=== PATIENT | male | born 1990 | race Two or more races ===

== ENCOUNTER 2019-03-23 14:00 | Inpatient (IN) | payer OTHER ==
[2019-03-23] VITALS (38 sets, daily range): BP systolic 82–180; BP diastolic 31–127
[~2019-03-23] VITALS: Ht 180.3 cm; Wt 90.7 kg
--- NOTE | 2019-03-23 14:02 | Emergency Room Report ---
History of Present Illness General Chief Complaint: Shortness of breath AMS Source: Patient, EMS Present Illness HPI 28-year-old male presents with acute respiratory failure patient required 2 mg of Narcan to wake him up, patient was found with pinpoint pupils, after given Narcan he started throwing up, having very agitated, patient is giving a very limited history secondary to just being woken up from his overdose. Patient presents for evaluation, just prior to arrival, aggravating factors drug use, alleviating factors Narcan, severity was severe unknown length of time Allergies: Coded Allergies: No Known Allergies (Unverified , 03/23/19) Patient History Limited by: medical condition - Altered from heroin overdose Past Medical History: see triage record Social History: Reports: smoking, drug use - Opioids Reviewed Nursing Documentation: PMH: Agreed; PSxH: Agreed Review of Systems All Other Systems: limited - Just awoken by Narcan Physical Exam Sp02 EP Interpretation: reviewed, normal General Appearance: alert, moderate distress Head: normocephalic, atraumatic Eyes: bilateral eye PERRL, bilateral eye EOMI ENT: uvula midline, dry mucus membranes Neck: supple, thyroid normal, supple/symm/no masses Respiratory: respiratory distress, accessory muscle use, crackles Cardiovascular #1: normal peripheral pulses, no edema, no gallop, no murmur, tachycardia Gastrointestinal: non tender, soft, no guarding, no rebound Musculoskeletal: normal inspection Neurologic: alert, oriented x3 Psychiatric: anxious Skin: no rash, warm/dry Procedures Critical Care Time Critical Care Time Given the critical condition in which the patient arrived, the patient was immediately assessed by myself and the nurse, and cardiac monitoring initiated due to the potential for rapid decompensation of the patient's clinical condition. During the course of the patient's stay, I spent a considerable amount of time at the bedside performing serial re-evaluations of the patient's hemodynamic and clinical status because of the recognized potential threat to life or limb in this condition. I then had a chance to review not only all of the available current laboratory and radiographic studies obtained today, but I also reviewed old records available to me at the time. 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 Sequential vital signs were obtained. Critical Care time of 90 minutes was performed exclusive of billable procedures. Intubation Intubation : Consent: Emergent Time of Intubation: 14:40 Intubation Method: orotracheal Tube Size (cm): 7.5 Medications: Etomidate, Rocuronium Breath Sounds after Intubation: equal Intubation Complications: O2 saturation decreased Post Intubation Xray: Yes Progress/Xray Impression: s/p intubation well seated Attempts: One Patient Tolerated: Well Complications: Other - patient already desatting in 20s Progress Patient required peep valve 20 to bag through pulmonary edema Medical Decision Making Diagnostic Impression: Primary Impression: Overdose Qualified Codes: T50.901A - Poisoning by unspecified drugs, medicaments and biological substances, accidental (unintentional), initial encounter Additional Impressions: Acute non-cardiogenic pulmonary edema Respiratory failure with hypoxia Qualified Codes: J96.01 - Acute respiratory failure with hypoxia ER Course 28-year-old male presents with acute hypoxic respiratory distress concerning for possible noncardiogenic pulmonary edema secondary to drug use patient is altered, patient is hypoxic down to 22, with a good waveform, patient was emergently intubated. Patient was spilling out pink frothy sputum, patient was emergently intubated Patient required a Peep valve in order to maintain his saturation, the vent was titrated in accordance to ARDS net protocol Patient vent titration Patient given antibiotics Patient admitted to Dr. Lima 4:44pm Patient : DEEPAK TRAVIS Referring Physician: Theodore Parker MD ID Number: [id number] Service Date: 03/23/19 : 1990 Report Date: 03/23/19 Gender: M Accession No.: [id number] Location: [facility] Procedure: XRAY Chest 1v Indication: Post intubation Technique: One view of the chest Comparison: One half hour earlier Findings: Interim placement of an endotracheal tube, endotracheal tube tip in good position approximately 5 cm above the stacie. Interim nasogastric intubation, tube tip projected at the level gastric fundus, in good position. Again demonstrated is extensive diffuse bilateral right greater than left interstitial and airspace disease. Impression: Satisfactory endotracheal and nasogastric intubation Persistent extensive bilateral interstitial and airspace infiltrates versus edema Dictated By: Thony Dumont MD Electronically Signed By: Thony Dumont MD Signed Date/Time 03/23/19 0679 CC: Theodore Parker MD Laboratory Tests Test 03/23/19 14:10 03/23/19 14:20 03/23/19 14:59 03/23/19 15:30 Lactic Acid Level 8.90 mmol/L (0.4-2.0) H White Blood Count 18.0 K/UL (4.8-10.8) H Red Blood Count 6.33 M/UL (4.70-6.10) H Hemoglobin 18.0 G/DL (14.2-18.0) Hematocrit 54.9 % (42.0-52.0) H Mean Corpuscular Volume 87 FL (80-99) Mean Corpuscular Hemoglobin 28.4 PG (27.0-31.0) Mean Corpuscular Hemoglobin Concent 32.7 G/DL (32.0-36.0) Red Cell Distribution Width 12.6 % (11.6-14.8) Platelet Count 283 K/UL (150-450) Mean Platelet Volume 6.0 FL (6.5-10.1) L Neutrophils (%) (Auto) % (45.0-75.0) Lymphocytes (%) (Auto) % (20.0-45.0) Monocytes (%) (Auto) % (1.0-10.0) Eosinophils (%) (Auto) % (0.0-3.0) Basophils (%) (Auto) % (0.0-2.0) Differential Total Cells Counted 100 Neutrophils % (Manual) 81 % (45-75) H Lymphocytes % (Manual) 18 % (20-45) L Monocytes % (Manual) 1 % (1-10) Eosinophils % (Manual) 0 % (0-3) Basophils % (Manual) 0 % (0-2) Band Neutrophils 0 % (0-8) Platelet Estimate Adequate Platelet Morphology Normal Prothrombin Time 10.3 SEC (9.30-11.50) Prothrombin Time INR 1.0 (0.9-1.1) PTT 23 SEC (23-33) Sodium Level 137 MMOL/L (136-145) Potassium Level 3.2 MMOL/L (3.5-5.1) L Chloride Level 100 MMOL/L (98-107) Carbon Dioxide Level 26 MMOL/L (21-32) Anion Gap 11 mmol/L (5-15) Blood Urea Nitrogen 13 mg/dL (7-18) Creatinine 1.5 MG/DL (0.55-1.30) H Estimate Glomerular Filtration Rate 56.6 mL/min (>60) Glucose Level 345 MG/DL (74-106) H Calcium Level 8.3 MG/DL (8.5-10.1) L Phosphorus Level 3.6 MG/DL (2.5-4.9) Magnesium Level 2.2 MG/DL (1.8-2.4) Total Bilirubin 0.2 MG/DL (0.2-1.0) Aspartate Amino Transferase (AST) 66 U/L (15-37) H Alanine Aminotransferase (ALT) 54 U/L (12-78) Alkaline Phosphatase 87 U/L (46-116) Total Creatine Kinase 543 U/L (26-308) H Troponin I 0.099 ng/mL (0.000-0.056) Pro-B-Type Natriuretic Peptide 63 pg/mL (0-125) Total Protein 7.2 G/DL (6.4-8.2) Albumin 3.6 G/DL (3.4-5.0) Globulin 3.6 g/dL Albumin/Globulin Ratio 1.0 (1.0-2.7) Lipase 115 U/L (73-393) Arterial Blood pH 6.937 (7.350-7.450) Arterial Blood Partial Pressure CO2 131.8 mmHg (35.0-45.0) *H Arterial Blood Partial Pressure O2 156.7 mmHg (75.0-100.0) H Arterial Blood HCO3 27.5 mmol/L (22.0-26.0) H Arterial Blood Oxygen Saturation 97.4 % (95-100) Arterial Blood Base Excess -10.1 (-2-2) *L [place] Test Positive Urine Color Pale yellow Urine Appearance Slightly cloudy Urine pH 5 (4.5-8.0) Urine Specific [place] 1.020 (1.005-1.035) Urine Protein 1+ (NEGATIVE) H Urine Glucose (UA) 4+ (NEGATIVE) H Urine Ketones Negative (NEGATIVE) Urine Blood 2+ (NEGATIVE) H Urine Nitrite Negative (NEGATIVE) Urine Bilirubin Negative (NEGATIVE) Urine Urobilinogen Normal MG/DL (0.0-1.0) Urine Leukocyte Esterase Negative (NEGATIVE) Urine RBC 5-10 /HPF (0 - 0) H Urine WBC 0-2 /HPF (0 - 0) Urine Squamous Epithelial Cells None /LPF (NONE/OCC) Urine Bacteria Occasional /HPF (NONE) EKG Diagnostic Results EKG Time: 14:12 EP Interpretation: Sinus tachycardia, rate 163, QTc 510, no acute ST elevations , normal axis Rhythm Strip Diag. Results Rhythm Strip Time: 15:43 EP Interpretation: yes Rate: 143 Rhythm: other - Sinus tachycardia Chest X-Ray Diagnostic Results Chest X-Ray Diagnostic Results : Chest X-Ray Ordered: Yes # of Views/Limited/Complete: 1 View Indication: Shortness of Breath EP Interpretation: Yes Interpretation: other - diffuse pulm edema Impression: Other - diffuse pulm edema Electronically Signed by: Theodore Parker MD Disposition: ADMITTED INPATIENT Condition: Critical Scripts Unable to Obtain Active Prescriptions or Reported Meds Theodore Parker MD Mar 23, 2019 14:02
[2019-03-23 14:47] LABS: HEMATOCRIT 54.9 % (42.0-52.0); MEAN CORPUSCULAR VOLUME 87 FL (80-99); PLATELET COUNT 283 K/UL (150-450); RED BLOOD COUNT 6.33 M/UL (4.70-6.10); RED CELL DISTRIBUTION WIDTH 12.6 % (11.6-14.8)
[2019-03-23 14:59] LABS: ANION GAP 11 mmol/L (5-15); BLOOD UREA NITROGEN 13 mg/dL (7-18); CALCIUM 8.3 MG/DL (8.5-10.1); CARBON DIOXIDE 26 MMOL/L (21-32); CHLORIDE 100 MMOL/L (98-107); CREATININE 1.5 MG/DL (0.55-1.30); POTASSIUM 3.2 MMOL/L (3.5-5.1); SODIUM 137 MMOL/L (136-145)
[2019-03-23 15:03] LABS: ALANINE AMINOTRANSFERASE 54 U/L (12-78); ALBUMIN 3.6 G/DL (3.4-5.0); ALKALINE PHOSPHATASE 87 U/L (46-116); ASPARTATE AMINO TRANSFERASE 66 U/L (15-37); BILIRUBIN,TOTAL 0.2 MG/DL (0.2-1.0)
--- NOTE | 2019-03-23 15:15 | Diagnostic Imaging Report ---
Indication: Post intubation Technique: One view of the chest Comparison: One half hour earlier Findings: Interim placement of an endotracheal tube, endotracheal tube tip in good position approximately 5 cm above the stacie. Interim nasogastric intubation, tube tip projected at the level gastric fundus, in good position. Again demonstrated is extensive diffuse bilateral right greater than left interstitial and airspace disease. Impression: Satisfactory endotracheal and nasogastric intubation Persistent extensive bilateral interstitial and airspace infiltrates versus edema
[2019-03-23 15:42] LABS: CREATINE KINASE 543 U/L (26-308); PHOSPHORUS 3.6 MG/DL (2.5-4.9)
--- NOTE | 2019-03-23 15:43 | Diagnostic Imaging Report ---
Indication: Status post nasogastric intubation Technique: Supine view of the upper abdomen Comparison: none Findings: There is a nasogastric tube in place, tip of which projects at the level gastric fundus, proximal port well below the gastroesophageal junction. Extensive pulmonary parenchymal disease is also noted. Impression: Satisfactory nasogastric intubation
[2019-03-23 16:12] LABS: APPEARANCE,URINE SLIGHTLY CLOUDY; BILIRUBIN, URINE NEGATIVE (NEGATIVE); COLOR,URINE PALE YELLOW; GLUCOSE, URINE (UA) 4+ (NEGATIVE); KETONES,URINE NEGATIVE (NEGATIVE); LEUKOCYTE ESTERASE ,URINE NEGATIVE (NEGATIVE); NITRITE,URINE NEGATIVE (NEGATIVE); PH,URINE 5 (4.5-8.0); PROTEIN,URINE 1+ (NEGATIVE); UROBILINOGEN,URINE NORMAL MG/DL (0.0-1.0)
[2019-03-23] MEDS ORDERED: Cefepime HCl 2 GM in D5W 55 ML IVPB ONE (16:15)
[2019-03-23] MEDS ORDERED: Vancomycin 1.5gm/NS Premix 275 ML IVPB SCH (16:15)
--- NOTE | 2019-03-23 16:29 | Diagnostic Imaging Report ---
Indication: Dyspnea Technique: One view of the chest Comparison: none Findings: There is diffuse bilateral interstitial and confluent and nodular airspace disease. The pleural spaces are clear. The heart size is normal. Impression: Bilateral extensive diffuse parenchymal disease, infiltrates versus edema.
[2019-03-23] MEDS ORDERED: Vancomycin 1.5 GM in NS 275 ML IVPB SCH (16:30)
[2019-03-23] MEDS: LORazepam Inj 2mg/ml 1ml IV ONE ×2 (17:32→17:40)
[2019-03-23] MEDS: Heparin 5000 units/ml inj SUBQ SCH (18:44)
[2019-03-23] MEDS: Piperacillin/Tazobactam 3.375 GM in NS 110 ML IVPB SCH (18:51)
[2019-03-23] MEDS: NS w/KCl 20mEq 1000ml 1,000 ML IV SCH (20:00)
[2019-03-23] MEDS: Nitroglycerin Patch 0.1mg/hr TDERMAL SCH (20:30)
[2019-03-23] MEDS ORDERED: Rocuronium Bromide 50mg/5ml Inj IV ONE ×2 (20:51)
[2019-03-23] MEDS ORDERED: Etomidate 40mg/20ml Inj IV ONE (20:51)
[2019-03-24] VITALS (47 sets, daily range): BP systolic 82–138; BP diastolic 45–90
--- NOTE | 2019-03-24 | History and Physical Report ---
DATE OF ADMISSION: 03/23/2019 REASON FOR ADMISSION: Respiratory failure. HISTORY OF PRESENT ILLNESS: This is a 28-year-old male. He was found with pinpoint pupils. He was given Narcan in the field and apparently became agitated and started vomiting. He apparently has a history of drug use. In the emergency room, intubation and mechanical ventilation was initiated. Opioids were confirmed in his drug screen. PAST MEDICAL HISTORY: Not obtainable. ALLERGIES: Not known. MEDICATIONS: Not known. SOCIAL HISTORY: Positive smoker, quantity not known. History of opioid use REVIEW OF SYSTEMS: Not obtainable. PHYSICAL EXAM: GENERAL: Orally intubated. Mechanically ventilated. VITAL SIGNS: Blood pressure 164/127, pulse 150, and respirations 24. Afebrile. HEENT: Pupils reactive and orally intubated. LUNGS: Bilateral rhonchi. HEART: Regular rhythm and rate. Normal S1, S2. ABDOMEN: Soft. NG-tube in place. EXTREMITIES: No edema. Perfusion of the digits is adequate. IMAGING: Chest x-ray reveals infiltrates versus edema bilaterally admitting ABG 6.93, 130, and 156. White count 18 and hemoglobin 18. Sodium 137, potassium 3.2, bicarb 26, BUN 13, and creatinine 1.5. Glucose 345. Lactic acid 8.9. CK 543. Troponin 0.099. Natriuretic peptide 63. Lipase normal. Urinalysis with only 5 to 10 red cells. Toxicology screen positive for marijuana. IMPRESSION: 1. Respiratory failure. 2. Aspiration pneumonia. 3. Possible noncardiogenic pulmonary edema. 4. Acute myocardial ischemia. 5. Possible overdose. 6. Severe respiratory acidosis. 7. Lactic acidosis. PLAN: 1. Ventilator support. 2. Intravenous fluid therapy. 3. Antimicrobials. 4. Nitrates. 5. Anti-platelet therapy. 6. DVT and stress ulcer prophylaxis. 7. Withdrawal precautions. 8. We will attempt to expand database. We will contact the family members. Frederick Velasco M.D. DR: YARI JOB#: [id number] CC:
[2019-03-24] MEDS: LORazepam Inj 2mg/ml 1ml IV PRN ×4 (00:54→20:14)
[2019-03-24] MEDS: Piperacillin/Tazobactam 3.375 GM in NS 110 ML IVPB SCH ×3 (01:43→18:09)
[2019-03-24] MEDS: NS w/KCl 20mEq 1000ml 1,000 ML IV SCH ×2 (05:00→17:08)
[2019-03-24 05:01] LABS: HEMATOCRIT 45.2 % (42.0-52.0); HEMOGLOBIN 15.7 G/DL (14.2-18.0); MEAN CORPUSCULAR VOLUME 84 FL (80-99); PLATELET COUNT 195 K/UL (150-450); RED CELL DISTRIBUTION WIDTH 12.4 % (11.6-14.8); WHITE BLOOD COUNT 15.4 K/UL (4.8-10.8)
[2019-03-24 05:18] LABS: ANION GAP 2 mmol/L (5-15); BLOOD UREA NITROGEN 13 mg/dL (7-18); CALCIUM 7.5 MG/DL (8.5-10.1); CARBON DIOXIDE 31 MMOL/L (21-32); CHLORIDE 106 MMOL/L (98-107); CREATININE 1.3 MG/DL (0.55-1.30); POTASSIUM 4.1 MMOL/L (3.5-5.1); SODIUM 139 MMOL/L (136-145)
[2019-03-24 05:22] LABS: ALANINE AMINOTRANSFERASE 38 U/L (12-78); ALBUMIN 2.8 G/DL (3.4-5.0); ALKALINE PHOSPHATASE 42 U/L (46-116); ASPARTATE AMINO TRANSFERASE 45 U/L (15-37); BILIRUBIN,TOTAL 0.6 MG/DL (0.2-1.0)
[2019-03-24] MEDS: NovoLOG Insulin Flexpen SUBQ SCH ×4 (05:43→18:00)
[2019-03-24] MEDS ORDERED: NovoLOG Insulin Flexpen SUBQ SCH (06:30)
--- NOTE | 2019-03-24 08:29 | Critical Care Progress Note ---
Assessment/Plan Assessment/Plan respiratory failure pneumonia possible ARDS hypoxemia PLAN hypervent keep pH over 7.25 for now PEEP IV antibiotics ID evaluation critical impression, plan, and exam edited and reviewed in detail care discussed with job service consultant - Subjective Interval Events: care noted on vent ICU care noted on 100% oxygen ROS Limited/Unobtainable: Yes Condition: critical EKG Rhythm: Sinus Rhythm I&O: Intake and Output 03/23/19 03/24/19 19:00 07:00 Intake Total 1118.045 ml 1892.198 ml Output Total 750 ml 1925 ml Balance 368.045 ml -32.802 ml Intake IV Total 1058.045 ml 1892.198 ml Other 60 ml Output Urine Total 750 ml 1925 ml Critical Care - Objective ET-Tube: 7.5 ET Position: 25 Last 24 Hour Vital Signs Date Time Temp Pulse Resp B/P (MAP) Pulse Ox O2 Delivery O2 Flow Rate FiO2 03/24/19 07:36 108 31 70 03/24/19 07:12 30 123/76 80 03/24/19 07:00 30 123/70 Mechanical Ventilator 80 03/24/19 07:00 70 03/24/19 07:00 116 22 123/76 (92) 98 03/24/19 06:45 114 23 118/73 (88) 98 03/24/19 06:30 113 30 103/61 (75) 99 03/24/19 06:15 117 28 108/59 (75) 100 03/24/19 06:00 118 29 108/59 (75) 99 03/24/19 06:00 30 108/59 Mechanical Ventilator 80 03/24/19 05:45 120 33 115/58 (77) 99 03/24/19 05:30 119 31 109/65 (80) 98 03/24/19 05:30 101.0 03/24/19 05:15 116 33 80 03/24/19 05:15 123 23 112/77 (89) 99 03/24/19 05:00 31 109/75 Mechanical Ventilator 80 03/24/19 05:00 118 31 113/73 (86) 97 03/24/19 04:45 126 32 109/75 (86) 99 03/24/19 04:30 101.2 120 31 114/77 (89) 99 03/24/19 04:15 114 29 104/64 (77) 98 03/24/19 04:00 80 03/24/19 04:00 116 30 107/71 (83) 98 03/24/19 04:00 Mechanical Ventilator 03/24/19 04:00 120 03/24/19 04:00 28 104/64 Mechanical Ventilator 80 03/24/19 03:45 115 30 100/48 (65) 98 03/24/19 03:30 117 29 110/61 (77) 99 03/24/19 03:15 115 30 101/64 (76) 98 03/24/19 03:00 119 30 103/45 (64) 98 03/24/19 03:00 30 101/64 Mechanical Ventilator 100 03/24/19 02:57 119 34 80 03/24/19 02:45 117 29 102/65 (77) 98 03/24/19 02:30 119 31 96/63 (74) 98 03/24/19 02:15 117 29 100/66 (77) 98 03/24/19 02:02 32 108/55 Mechanical Ventilator 100 03/24/19 02:00 117 28 94/57 (69) 97 03/24/19 02:00 33 94/57 Mechanical Ventilator 100 03/24/19 01:45 32 94/57 Mechanical Ventilator 80 03/24/19 01:30 30 108/55 Mechanical Ventilator 80 03/24/19 01:15 122 28 105/66 (79) 98 03/24/19 01:04 123 31 80 03/24/19 01:00 30 97/58 Mechanical Ventilator 100 03/24/19 01:00 116 30 100/61 (74) 100 03/24/19 00:45 111 31 97/65 (76) 98 03/24/19 00:45 31 91/50 Mechanical Ventilator 100 03/24/19 00:30 30 100/49 Mechanical Ventilator 100 03/24/19 00:30 99.2 114 27 90/72 (78) 98 03/24/19 00:15 116 29 82/57 (65) 98 03/24/19 00:15 33 98/59 Mechanical Ventilator 100 03/24/19 00:00 118 30 91/61 (71) 98 03/24/19 00:00 33 91/61 Mechanical Ventilator 100 03/24/19 00:00 Mechanical Ventilator 03/24/19 00:00 118 11/21/19 00:00 100 03/23/19 23:45 119 31 94/60 (71) 99 03/23/19 23:45 30 91/61 Mechanical Ventilator 100 03/23/19 23:30 31 112/52 Mechanical Ventilator 100 03/23/19 23:30 124 26 112/52 (72) 99 03/23/19 23:15 29 100/70 Mechanical Ventilator 100 03/23/19 23:15 123 24 100/70 (80) 98 03/23/19 23:00 122 33 88/61 (70) 99 03/23/19 23:00 33 88/61 Mechanical Ventilator 100 03/23/19 22:45 121 34 100 03/23/19 22:45 28 91/67 Mechanical Ventilator 100 03/23/19 22:30 20 88/58 Mechanical Ventilator 100 03/23/19 22:30 123 31 92/61 (71) 98 03/23/19 22:15 122 31 89/68 (75) 97 03/23/19 22:15 30 92/61 Mechanical Ventilator 100 03/23/19 22:00 117 32 89/61 (70) 97 03/23/19 22:00 32 89/50 Mechanical Ventilator 100 03/23/19 21:45 33 89/61 Mechanical Ventilator 100 03/23/19 21:45 124 25 95/66 (76) 95 03/23/19 21:42 118 28 88/58 (68) 96 03/23/19 21:30 117 30 83/59 (67) 96 03/23/19 21:30 30 88/58 Mechanical Ventilator 100 03/23/19 21:26 122 27 91/63 (72) 96 03/23/19 21:15 118 30 84/65 (71) 98 03/23/19 21:15 33 84/65 Mechanical Ventilator 100 03/23/19 21:00 31 92/59 Mechanical Ventilator 100 03/23/19 21:00 116 31 82/61 (68) 97 03/23/19 20:45 116 31 102/31 (54) 97 03/23/19 20:44 118 31 100 03/23/19 20:30 122 34 118/78 (91) 92 2019 20:30 113/38 03/23/19 20:30 100 03/23/19 20:19 33 88/39 Mechanical Ventilator 100 03/23/19 20:15 123 32 113/38 (63) 92 03/23/19 20:04 31 110/42 Mechanical Ventilator 100 03/23/19 20:00 100 03/23/19 20:00 Mechanical Ventilator 03/23/19 20:00 99.7 122 33 110/42 (64) 92 03/23/19 19:49 32 92/35 Mechanical Ventilator 100 03/23/19 19:45 128 03/23/19 19:34 32 97/38 Mechanical Ventilator 100 03/23/19 19:13 32 84/59 Mechanical Ventilator 100 03/23/19 19:00 145 33 84/59 (67) 81 03/23/19 18:58 31 112/70 Mechanical Ventilator 60 03/23/19 18:45 152 32 80 03/23/19 18:45 163 32 112/70 (84) 85 03/23/19 18:45 28 150/110 Mechanical Ventilator 100 03/23/19 18:43 157 03/23/19 18:30 155 27 112/70 (84) 99 03/23/19 18:15 149 29 117/98 (104) 99 03/23/19 18:12 Mechanical Ventilator Mechanical Ventilator 03/23/19 18:00 150 24 93/50 98 Mechanical Ventilator 03/23/19 18:00 100.5 151 26 150/110 (123) 98 03/23/19 17:45 156 31 92/46 98 Room Air 03/23/19 17:41 24 92/46 Mechanical Ventilator 03/23/19 17:30 160 24 93/47 98 Room Air 03/23/19 17:26 24 155/110 Mechanical Ventilator 03/23/19 17:15 151 24 155/110 99 Mechanical Ventilator 03/23/19 17:00 155 24 159/116 99 Mechanical Ventilator 03/23/19 16:48 151 24 100 03/23/19 16:45 152 23 156/111 99 Mechanical Ventilator 03/23/19 16:38 20 146/108 Mechanical Ventilator 03/23/19 16:36 20 166/107 Mechanical Ventilator 100 03/23/19 16:30 162 20 146/108 98 Mechanical Ventilator 03/23/19 16:23 20 146/108 Mechanical Ventilator 03/23/19 16:15 140 27 172/100 95 Mechanical Ventilator 03/23/19 16:15 27 136/110 Mechanical Ventilator 11/20/19 16:00 147 31 136/110 96 Mechanical Ventilator 03/23/19 16:00 31 187/123 Mechanical Ventilator 100 03/23/19 15:55 31 164/127 Mechanical Ventilator 100 03/23/19 15:45 143 31 164/127 96 Mechanical Ventilator 03/23/19 15:40 20 166/107 Mechanical Ventilator 100 03/23/19 15:30 117 20 166/107 97 Mechanical Ventilator 03/23/19 15:15 111 38 173/116 98 Mechanical Ventilator 03/23/19 15:00 138 26 95 Mechanical Ventilator 100 03/23/19 15:00 130 20 100 03/23/19 15:00 140 20 170/123 96 Mechanical Ventilator 03/23/19 14:50 162 21 172/111 97 Mechanical Ventilator 03/23/19 14:45 100 03/23/19 14:35 156 20 166/107 98 Mechanical Ventilator 03/23/19 14:20 111 20 Room Air 24 03/23/19 14:20 162 38 174/122 19 Room Air 03/23/19 14:02 165 30 153/89 (110) 25 Room Air Labs: Labs Test 03/23/19 14:10 03/23/19 14:20 03/23/19 14:59 03/23/19 15:30 Lactic Acid Level 8.90 mmol/L (0.4-2.0) White Blood Count 18.0 K/UL (4.8-10.8) Red Blood Count 6.33 M/UL (4.70-6.10) Hemoglobin 18.0 G/DL (14.2-18.0) Hematocrit 54.9 % (42.0-52.0) Mean Corpuscular Volume 87 FL (80-99) Mean Corpuscular Hemoglobin 28.4 PG (27.0-31.0) Mean Corpuscular Hemoglobin Concent 32.7 G/DL (32.0-36.0) Red Cell Distribution Width 12.6 % (11.6-14.8) Platelet Count 283 K/UL (150-450) Mean Platelet Volume 6.0 FL (6.5-10.1) Neutrophils (%) (Auto) % (45.0-75.0) Lymphocytes (%) (Auto) % (20.0-45.0) Monocytes (%) (Auto) % (1.0-10.0) Eosinophils (%) (Auto) % (0.0-3.0) Basophils (%) (Auto) % (0.0-2.0) Differential Total Cells Counted 100 Neutrophils % (Manual) 81 % (45-75) Lymphocytes % (Manual) 18 % (20-45) Monocytes % (Manual) 1 % (1-10) Eosinophils % (Manual) 0 % (0-3) Basophils % (Manual) 0 % (0-2) Band Neutrophils 0 % (0-8) Platelet Estimate Adequate Platelet Morphology Normal Prothrombin Time 10.3 SEC (9.30-11.50) Prothromb Time International Ratio 1.0 (0.9-1.1) Activated Partial Thromboplast Time 23 SEC (23-33) Sodium Level 137 MMOL/L (136-145) Potassium Level 3.2 MMOL/L (3.5-5.1) Chloride Level 100 MMOL/L (98-107) Carbon Dioxide Level 26 MMOL/L (21-32) Anion Gap 11 mmol/L (5-15) Blood Urea Nitrogen 13 mg/dL (7-18) Creatinine 1.5 MG/DL (0.55-1.30) Estimat Glomerular Filtration Rate 56.6 mL/min (>60) Glucose Level 345 MG/DL (74-106) Calcium Level 8.3 MG/DL (8.5-10.1) Phosphorus Level 3.6 MG/DL (2.5-4.9) Magnesium Level 2.2 MG/DL (1.8-2.4) Total Bilirubin 0.2 MG/DL (0.2-1.0) Aspartate Amino Transf (AST/SGOT) 66 U/L (15-37) Alanine Aminotransferase (ALT/SGPT) 54 U/L (12-78) Alkaline Phosphatase 87 U/L (46-116) Total Creatine Kinase 543 U/L (26-308) Troponin I 0.099 ng/mL (0.000-0.056) Pro-B-Type Natriuretic Peptide 63 pg/mL (0-125) Total Protein 7.2 G/DL (6.4-8.2) Albumin 3.6 G/DL (3.4-5.0) Globulin 3.6 g/dL Albumin/Globulin Ratio 1.0 (1.0-2.7) Lipase 115 U/L (73-393) Arterial Blood pH 6.937 (7.350-7.450) Arterial Blood Partial Pressure CO2 131.8 mmHg (35.0-45.0) Arterial Blood Partial Pressure O2 156.7 mmHg (75.0-100.0) Arterial Blood HCO3 27.5 mmol/L (22.0-26.0) Arterial Blood Oxygen Saturation 97.4 % (95-100) Arterial Blood Base Excess -10.1 (-2-2) Chepe Test Positive Urine Color Pale yellow Urine Appearance Slightly cloudy Urine pH 5 (4.5-8.0) Urine Specific [place] 1.020 (1.005-1.035) Urine Protein 1+ (NEGATIVE) Urine Glucose (UA) 4+ (NEGATIVE) Urine Ketones Negative (NEGATIVE) Urine Blood 2+ (NEGATIVE) Urine Nitrite Negative (NEGATIVE) Urine Bilirubin Negative (NEGATIVE) Urine Urobilinogen Normal MG/DL (0.0-1.0) Urine Leukocyte Esterase Negative (NEGATIVE) Urine RBC 5-10 /HPF (0 - 0) Urine WBC 0-2 /HPF (0 - 0) Urine Squamous Epithelial Cells None /LPF (NONE/OCC) Urine Bacteria Occasional /HPF (NONE) Urine Opiates Screen Negative (NEGATIVE) Urine Barbiturates Screen Negative (NEGATIVE) Phencyclidine (PCP) Screen Negative (NEGATIVE) Urine Amphetamines Screen Negative (NEGATIVE) Urine Benzodiazepines Screen Negative (NEGATIVE) Urine Cocaine Screen Negative (NEGATIVE) Urine Marijuana (THC) Screen Positive (NEGATIVE) Test 03/23/19 16:50 03/23/19 18:21 03/23/19 20:12 03/23/19 21:35 Lactic Acid Level 2.60 mmol/L (0.66-2.22) 3.00 mmol/L (0.4-2.0) Triglycerides Level 68 MG/DL (30-150) Arterial Blood pH 7.003 (7.350-7.450) 7.266 (7.350-7.450) Arterial Blood Partial Pressure CO2 124.7 mmHg (35.0-45.0) 56.0 mmHg (35.0-45.0) Arterial Blood Partial Pressure O2 214.5 mmHg (75.0-100.0) 57.3 mmHg (75.0-100.0) Arterial Blood HCO3 30.3 mmol/L (22.0-26.0) 24.9 mmol/L (22.0-26.0) Arterial Blood Oxygen Saturation 98.4 % (95-100) 89.9 % (95-100) Arterial Blood Base Excess -6.4 (-2-2) -3.2 (-2-2) Chepe Test Positive Positive Test 03/23/19 23:00 03/24/19 04:30 03/24/19 05:43 03/24/19 07:30 Lactic Acid Level 3.40 mmol/L (0.66-2.22) 2.20 mmol/L (0.4-2.0) 2.40 mmol/L (0.66-2.22) White Blood Count 15.4 K/UL (4.8-10.8) Red Blood Count 5.40 M/UL (4.70-6.10) Hemoglobin 15.7 G/DL (14.2-18.0) Hematocrit 45.2 % (42.0-52.0) Mean Corpuscular Volume 84 FL (80-99) Mean Corpuscular Hemoglobin 29.0 PG (27.0-31.0) Mean Corpuscular Hemoglobin Concent 34.7 G/DL (32.0-36.0) Red Cell Distribution Width 12.4 % (11.6-14.8) Platelet Count 195 K/UL (150-450) Mean Platelet Volume 6.1 FL (6.5-10.1) Neutrophils (%) (Auto) % (45.0-75.0) Lymphocytes (%) (Auto) % (20.0-45.0) Monocytes (%) (Auto) % (1.0-10.0) Eosinophils (%) (Auto) % (0.0-3.0) Basophils (%) (Auto) % (0.0-2.0) Sodium Level 139 MMOL/L (136-145) Potassium Level 4.1 MMOL/L (3.5-5.1) Chloride Level 106 MMOL/L (98-107) Carbon Dioxide Level 31 MMOL/L (21-32) Anion Gap 2 mmol/L (5-15) Blood Urea Nitrogen 13 mg/dL (7-18) Creatinine 1.3 MG/DL (0.55-1.30) Estimat Glomerular Filtration Rate > 60 mL/min (>60) Glucose Level 109 MG/DL (74-106) Calcium Level 7.5 MG/DL (8.5-10.1) Total Bilirubin 0.6 MG/DL (0.2-1.0) Aspartate Amino Transf (AST/SGOT) 45 U/L (15-37) Alanine Aminotransferase (ALT/SGPT) 38 U/L (12-78) Alkaline Phosphatase 42 U/L (46-116) Troponin I 0.902 ng/mL (0.000-0.056) Pro-B-Type Natriuretic Peptide 1256 pg/mL (0-125) Total Protein 5.7 G/DL (6.4-8.2) Albumin 2.8 G/DL (3.4-5.0) Globulin 2.9 g/dL Albumin/Globulin Ratio 1.0 (1.0-2.7) Arterial Blood pH 7.396 (7.350-7.450) Arterial Blood Partial Pressure CO2 42.7 mmHg (35.0-45.0) Arterial Blood Partial Pressure O2 77.0 mmHg (75.0-100.0) Arterial Blood HCO3 25.6 mmol/L (22.0-26.0) Arterial Blood Oxygen Saturation 95.6 % (95-100) Arterial Blood Base Excess 0.5 (-2-2) Chepe Test Positive Triglycerides Level 72 MG/DL (30-150) Objective: WDWN NAD reduced breath sounds bilaterally without rhonchi or wheeze [id number] tachy without MRG NABS nontender no HSM no CCE nonfocal Micro: Microbiology Date/Time Source Procedure Growth Status 03/23/19 19:20 Rectum Received Accucheck: 105 Ishan Cao MD Mar 24, 2019 08:29
[2019-03-24] MEDS: Heparin 5000 units/ml inj SUBQ SCH (09:00)
[2019-03-24] MEDS ORDERED: Aspirin Baby 81mg ORAL SCH (09:00)
[2019-03-24] MEDS: Midazolam 2mg/2ml Inj IVP PRN ×2 (09:11→20:14)
--- NOTE | 2019-03-24 13:07 | Diagnostic Imaging Report ---
Indication: Abnormal breath sounds Comparison: 03/23/2019 A single view chest radiograph was obtained. Findings: Slightly more confluent appearing airspace disease noted bilaterally. Disease is extensive and involves the central aspects of both lungs. Heart is relatively normal in size. The NG tube has been pulled back and should be advanced further. Endotracheal tube remains satisfactory in position. IMPRESSION: Extensive airspace disease bilaterally slightly worse. Nasogastric tube should be advanced further.
[2019-03-24] MEDS: Nitroglycerin Patch 0.1mg/hr TDERMAL SCH (20:14)
[2019-03-25] VITALS (33 sets, daily range): BP systolic 114–149; BP diastolic 73–99
[2019-03-25] MEDS: Midazolam 2mg/2ml Inj IVP PRN ×3 (00:19→22:06)
[2019-03-25] MEDS: Piperacillin/Tazobactam 3.375 GM in NS 110 ML IVPB SCH ×3 (01:48→17:51)
[2019-03-25] MEDS: LORazepam Inj 2mg/ml 1ml IV PRN ×3 (01:48→11:51)
[2019-03-25] MEDS: NS w/KCl 20mEq 1000ml 1,000 ML IV SCH ×3 (01:48→20:21)
[2019-03-25 05:02] LABS: HEMATOCRIT 42.7 % (42.0-52.0); HEMOGLOBIN 14.9 G/DL (14.2-18.0); MEAN CORPUSCULAR VOLUME 83 FL (80-99); PLATELET COUNT 191 K/UL (150-450); RED BLOOD COUNT 5.15 M/UL (4.70-6.10); RED CELL DISTRIBUTION WIDTH 12.1 % (11.6-14.8); WHITE BLOOD COUNT 17.3 K/UL (4.8-10.8)
[2019-03-25 05:59] LABS: ALANINE AMINOTRANSFERASE 38 U/L (12-78); ALBUMIN 2.9 G/DL (3.4-5.0); ALBUMIN/GLOBULIN RATIO 0.8 (1.0-2.7); ALKALINE PHOSPHATASE 60 U/L (46-116); ANION GAP 6 mmol/L (5-15); ASPARTATE AMINO TRANSFERASE 60 U/L (15-37); BILIRUBIN,TOTAL 1.1 MG/DL (0.2-1.0); BLOOD UREA NITROGEN 15 mg/dL (7-18); CALCIUM 8.3 MG/DL (8.5-10.1); CARBON DIOXIDE 28 MMOL/L (21-32); CHLORIDE 105 MMOL/L (98-107); POTASSIUM 3.9 MMOL/L (3.5-5.1); SODIUM 139 MMOL/L (136-145)
[2019-03-25 06:00] LABS: BILIRUBIN,DIRECT 0.1 MG/DL (0.0-0.3)
[2019-03-25] MEDS: NovoLOG Insulin Flexpen SUBQ SCH ×4 (06:00→17:51)
--- NOTE | 2019-03-25 06:00 | Progress Note ---
DATE: 03/24/2019 INTERNAL MEDICINE PROGRESS NOTE SUBJECTIVE: The patient's ventilator settings have been adjusted. The case was discussed with his mother at bedside. The patient is awake and alert and recognized her and responded to her verbal communication with eye contact and gesture. OBJECTIVE: VITAL SIGNS: Blood pressure 123/76, pulse 108, respirations 30, and afebrile. NECK: Thin trach secretions. LUNGS: Bilateral rhonchi. CARDIAC: Regular rhythm and rate. Normal S1, S2. ABDOMEN: Soft. EXTREMITIES: No edema. LABORATORY DATA: White count 15.4, hemoglobin 15.7. Lactic acid 2.4. BUN 13, creatinine 1.3. Troponin 0.902. Pro-natriuretic peptide 1256. ABG, 7.39, 43, 77. IMPRESSION: 1. Acute respiratory failure. 2. Acute myocardial ischemia. 3. Acute respiratory acidosis. 4. Probable toxin ingestion. 5. Bilateral pneumonia. 6. Possible ARDS. 7. Possible noncardiogenic pulmonary edema. 8. Hypoxia. 9. Lactic acidosis. PLAN: 1. Antimicrobials. 2. Respiratory hygiene. 3. Diuresis. 4. Monitor acid-base parameters. 5. Weaning efforts. 6. Remains critical and guarded. Frederick Velasco M.D. DR: FATOUMATA JOB#: [id number] CC:
--- NOTE | 2019-03-25 08:30 | Consultation ---
DATE OF CONSULTATION: 03/24/2019 HISTORY OF PRESENT ILLNESS: This is a 28-year-old male with a history of substance use disorder, who has been admitted to the hospital after he was found to have pinpoint pupils and acute respiratory failure. He was given Narcan. He is currently in the ICU and is calm. He was agitated earlier. The patient is intubated, however, he was able to nod to questions. He is alert and oriented times to self, place, and year. He did not know the month nor the date. He admitted that he has been using drugs and it was an accidental overdose. He denied any depressive symptoms. Denied any suicidal ideation. His mother was at bedside who speaks Armenian only. PAST PSYCHIATRIC HISTORY: He denies any psychiatric history or suicide attempt or psychiatric hospitalization. PAST MEDICAL HISTORY: Not significant. ALLERGIES: No known drug allergies. SUBSTANCE ABUSE HISTORY: Significant for opiate dependence, most likely heroin. The urine toxicology is negative for opiates; however, positive for THC. MENTAL STATUS EXAMINATION: The patient is alert and oriented times to self, place, and situation. Mood is neutral. Affect is constricted, congruent with mood. Thought process is unable to assess. Thought content, denied any suicidal or homicidal ideation. Cognition is impaired. Insight and judgment limited. ASSESSMENT: AXIS I: Opiate dependence, most likely heroin. AXIS II: Deferred. AXIS III: Heroin overdose. AXIS IV: Moderate. AXIS V: 20. PLAN: 1. We will continue the patient on lorazepam 2 mg IV q.4 h. for anxiety. 2. We will continue to reassess. Shamar Pride M.D. DR: ANU JOB#: [id number] CC:
[2019-03-25] MEDS: Pantoprazole Inj IVP SCH (09:29)
--- NOTE | 2019-03-25 09:47 | Diagnostic Imaging Report ---
Indication: Shortness of breath Technique: One view of the chest Comparison: 03/24/2019 Findings: Stable somewhat high position of nasogastric tube, proximal sidehole at the level of the gastroesophageal junction. Stable satisfactory position of endotracheal tube. There is interim improvement of previously demonstrated bilateral interstitial and airspace opacities, although disease persists diffusely. Impression: Stable high position of nasogastric tube. Advancement recommended. This finding was phoned to ICU charge nurse Kandace at the time of interpretation Interim improvement of previously demonstrated interstitial and airspace disease, with some residual
--- NOTE | 2019-03-25 13:39 | Diagnostic Imaging Report ---
Indication: Status post nasogastric tube repositioning Technique: Supine view of the abdomen Comparison: Chest radiograph of earlier the same day, abdominal radiograph of 03/23/2019 Findings: Since the earlier chest radiograph, the nasogastric tube is been advanced, tip now projecting at the level gastric antrum. The bowel gas pattern is unremarkable. There is a Muir catheter noted in the pelvis. Impression: Improved and now satisfactory position of nasogastric tube
--- NOTE | 2019-03-25 14:01 | Cardiology Report ---
APPROVED REPORT EKG Measurement Heart [id number] Sinus tachycardia Possible Lateral infarct, age undetermined Possible Inferior infarct, age undetermined Abnormal ECG
--- NOTE | 2019-03-25 18:15 | Progress Note ---
DATE: 03/25/2019 SUBJECTIVE: The patient is in the ICU this time. No acute distress noted. . More alert. Denies any suicidal or homicidal ideations. MENTAL STATUS EXAMINATION: The patient is alert, oriented times self, place. Mood is dysphoric. Affect is constricted, congruent with mood. Thought process is concrete. Thought content, no suicidal or homicidal ideation noted. Cognition is impaired. Insight and judgment is limited. ASSESSMENT: 1. Status post heroin overdose. 2. Not an imminent danger to self or others. PLAN: 1. We will continue to readjust the medications. 2. Provide the patient with reality orientation and supportive therapy. Shamar Pride M.D. DR: RENNY JOB#: [id number] CC:
[2019-03-25] MEDS: Nitroglycerin Patch 0.1mg/hr TDERMAL SCH (20:21)
--- NOTE | 2019-03-25 21:02 | Critical Care Progress Note ---
Assessment/Plan Assessment/Plan respiratory failure pneumonia possible ARDS hypoxemia PLAN hypervent adjust vent and reduce AC rate PEEP IV antibiotics ID evaluation critical but improved hope to wean in am impression, plan, and exam edited and reviewed in detail care discussed with commercial announcer - Subjective Interval Events: findings noted vent adjusted care noted ROS Limited/Unobtainable: Yes Condition: critical EKG Rhythm: Sinus Rhythm I&O: Intake and Output 03/24/19 03/25/19 19:00 07:00 Intake Total 1150.35 ml 1598.0 ml Output Total 2050 ml 2185 ml Balance -899.65 ml -587.0 ml Intake IV Total 1150.35 ml 1598.0 ml Output Urine Total 2050 ml 2185 ml Critical Care - Objective ET-Tube: 7.5 ET Position: 25 Last 24 Hour Vital Signs Date Time Temp Pulse Resp B/P (MAP) Pulse Ox O2 Delivery O2 Flow Rate FiO2 03/25/19 20:54 88 22 30 03/25/19 20:21 128/75 03/25/19 19:00 80 20 128/75 (92) 100 03/25/19 18:39 80 20 30 03/25/19 18:00 98.6 73 21 128/81 (97) 99 03/25/19 17:01 84 24 30 03/25/19 17:00 80 24 132/83 (99) 100 03/25/19 16:00 85 25 134/87 (103) 100 03/25/19 16:00 Mechanical Ventilator 03/25/19 16:00 84 03/25/19 16:00 35 03/25/19 15:00 75 21 123/75 (91) 100 03/25/19 14:58 76 21 35 03/25/19 14:30 83 20 126/83 (97) 100 03/25/19 14:00 80 20 120/86 (97) 100 03/25/19 13:00 86 5 122/80 (94) 100 03/25/19 12:30 77 19 121/84 (96) 100 03/25/19 12:30 77 20 35 03/25/19 12:00 35 03/25/19 12:00 80 03/25/19 12:00 98.7 80 29 124/73 (90) 100 03/25/19 12:00 Mechanical Ventilator 03/25/19 11:30 78 28 132/77 (95) 100 03/25/19 11:00 87 29 124/86 (99) 100 03/25/19 10:39 83 30 40 03/25/19 10:00 99.0 89 28 128/85 (99) 100 03/25/19 09:30 81 30 131/77 (95) 100 03/25/19 09:10 84 30 40 03/25/19 09:00 73 29 130/88 (102) 100 03/25/19 08:00 98.9 82 30 127/82 (97) 100 03/25/19 08:00 40 03/25/19 08:00 Mechanical Ventilator 03/25/19 08:00 79 03/25/19 07:00 83 29 135/82 (99) 100 03/25/19 06:52 69 30 40 03/25/19 06:00 86 30 124/82 (96) 100 03/25/19 05:29 77 30 40 03/25/19 05:00 81 30 131/88 (102) 100 03/25/19 04:30 74 29 128/86 (100) 100 03/25/19 04:00 40 03/25/19 04:00 99.8 74 30 139/84 (102) 100 03/25/19 04:00 Mechanical Ventilator 03/25/19 04:00 81 03/25/19 03:30 81 31 40 03/25/19 03:30 73 30 135/83 (100) 100 03/25/19 03:00 74 29 136/83 (100) 100 03/25/19 02:00 77 30 122/78 (93) 100 03/25/19 01:30 80 30 40 03/25/19 01:00 81 28 123/82 (96) 100 03/25/19 00:30 84 29 123/80 (94) 98 03/25/19 00:00 87 03/25/19 00:00 40 03/25/19 00:00 Mechanical Ventilator 03/25/19 00:00 99.7 87 30 128/83 (98) 100 03/24/19 23:30 87 30 120/81 (94) 100 03/24/19 23:00 83 30 122/85 (97) 100 03/24/19 22:33 81 30 40 03/24/19 22:00 91 30 123/84 (97) 100 03/24/19 21:53 100.0 03/24/19 21:30 93 30 118/78 (91) 100 03/24/19 21:30 92 30 40 Labs: Labs Test 03/23/19 14:10 03/23/19 14:20 03/23/19 14:59 03/23/19 15:30 Lactic Acid Level 8.90 mmol/L (0.4-2.0) White Blood Count 18.0 K/UL (4.8-10.8) Red Blood Count 6.33 M/UL (4.70-6.10) Hemoglobin 18.0 G/DL (14.2-18.0) Hematocrit 54.9 % (42.0-52.0) Mean Corpuscular Volume 87 FL (80-99) Mean Corpuscular Hemoglobin 28.4 PG (27.0-31.0) Mean Corpuscular Hemoglobin Concent 32.7 G/DL (32.0-36.0) Red Cell Distribution Width 12.6 % (11.6-14.8) Platelet Count 283 K/UL (150-450) Mean Platelet Volume 6.0 FL (6.5-10.1) Neutrophils (%) (Auto) % (45.0-75.0) Lymphocytes (%) (Auto) % (20.0-45.0) Monocytes (%) (Auto) % (1.0-10.0) Eosinophils (%) (Auto) % (0.0-3.0) Basophils (%) (Auto) % (0.0-2.0) Differential Total Cells Counted 100 Neutrophils % (Manual) 81 % (45-75) Lymphocytes % (Manual) 18 % (20-45) Monocytes % (Manual) 1 % (1-10) Eosinophils % (Manual) 0 % (0-3) Basophils % (Manual) 0 % (0-2) Band Neutrophils 0 % (0-8) Platelet Estimate Adequate Platelet Morphology Normal Prothrombin Time 10.3 SEC (9.30-11.50) Prothromb Time International Ratio 1.0 (0.9-1.1) Activated Partial Thromboplast Time 23 SEC (23-33) Sodium Level 137 MMOL/L (136-145) Potassium Level 3.2 MMOL/L (3.5-5.1) Chloride Level 100 MMOL/L (98-107) Carbon Dioxide Level 26 MMOL/L (21-32) Anion Gap 11 mmol/L (5-15) Blood Urea Nitrogen 13 mg/dL (7-18) Creatinine 1.5 MG/DL (0.55-1.30) Estimat Glomerular Filtration Rate 56.6 mL/min (>60) Glucose Level 345 MG/DL (74-106) Calcium Level 8.3 MG/DL (8.5-10.1) Phosphorus Level 3.6 MG/DL (2.5-4.9) Magnesium Level 2.2 MG/DL (1.8-2.4) Total Bilirubin 0.2 MG/DL (0.2-1.0) Aspartate Amino Transf (AST/SGOT) 66 U/L (15-37) Alanine Aminotransferase (ALT/SGPT) 54 U/L (12-78) Alkaline Phosphatase 87 U/L (46-116) Total Creatine Kinase 543 U/L (26-308) Troponin I 0.099 ng/mL (0.000-0.056) Pro-B-Type Natriuretic Peptide 63 pg/mL (0-125) Total Protein 7.2 G/DL (6.4-8.2) Albumin 3.6 G/DL (3.4-5.0) Globulin 3.6 g/dL Albumin/Globulin Ratio 1.0 (1.0-2.7) Lipase 115 U/L (73-393) Arterial Blood pH 6.937 (7.350-7.450) Arterial Blood Partial Pressure CO2 131.8 mmHg (35.0-45.0) Arterial Blood Partial Pressure O2 156.7 mmHg (75.0-100.0) Arterial Blood HCO3 27.5 mmol/L (22.0-26.0) Arterial Blood Oxygen Saturation 97.4 % (95-100) Arterial Blood Base Excess -10.1 (-2-2) Chepe Test Positive Urine Color Pale yellow Urine Appearance Slightly cloudy Urine pH 5 (4.5-8.0) Urine Specific [place] 1.020 (1.005-1.035) Urine Protein 1+ (NEGATIVE) Urine Glucose (UA) 4+ (NEGATIVE) Urine Ketones Negative (NEGATIVE) Urine Blood 2+ (NEGATIVE) Urine Nitrite Negative (NEGATIVE) Urine Bilirubin Negative (NEGATIVE) Urine Urobilinogen Normal MG/DL (0.0-1.0) Urine Leukocyte Esterase Negative (NEGATIVE) Urine RBC 5-10 /HPF (0 - 0) Urine WBC 0-2 /HPF (0 - 0) Urine Squamous Epithelial Cells None /LPF (NONE/OCC) Urine Bacteria Occasional /HPF (NONE) Urine Opiates Screen Negative (NEGATIVE) Urine Barbiturates Screen Negative (NEGATIVE) Phencyclidine (PCP) Screen Negative (NEGATIVE) Urine Amphetamines Screen Negative (NEGATIVE) Urine Benzodiazepines Screen Negative (NEGATIVE) Urine Cocaine Screen Negative (NEGATIVE) Urine Marijuana (THC) Screen Positive (NEGATIVE) Test 03/23/19 16:50 03/23/19 18:21 03/23/19 20:12 03/23/19 21:35 Lactic Acid Level 2.60 mmol/L (0.66-2.22) 3.00 mmol/L (0.4-2.0) Triglycerides Level 68 MG/DL (30-150) Arterial Blood pH 7.003 (7.350-7.450) 7.266 (7.350-7.450) Arterial Blood Partial Pressure CO2 124.7 mmHg (35.0-45.0) 56.0 mmHg (35.0-45.0) Arterial Blood Partial Pressure O2 214.5 mmHg (75.0-100.0) 57.3 mmHg (75.0-100.0) Arterial Blood HCO3 30.3 mmol/L (22.0-26.0) 24.9 mmol/L (22.0-26.0) Arterial Blood Oxygen Saturation 98.4 % (95-100) 89.9 % (95-100) Arterial Blood Base Excess -6.4 (-2-2) -3.2 (-2-2) Chepe Test Positive Positive Test 03/23/19 23:00 03/24/19 04:30 03/24/19 05:43 03/24/19 07:30 Lactic Acid Level 3.40 mmol/L (0.66-2.22) 2.20 mmol/L (0.4-2.0) 2.40 mmol/L (0.66-2.22) White Blood Count 15.4 K/UL (4.8-10.8) Red Blood Count 5.40 M/UL (4.70-6.10) Hemoglobin 15.7 G/DL (14.2-18.0) Hematocrit 45.2 % (42.0-52.0) Mean Corpuscular Volume 84 FL (80-99) Mean Corpuscular Hemoglobin 29.0 PG (27.0-31.0) Mean Corpuscular Hemoglobin Concent 34.7 G/DL (32.0-36.0) Red Cell Distribution Width 12.4 % (11.6-14.8) Platelet Count 195 K/UL (150-450) Mean Platelet Volume 6.1 FL (6.5-10.1) Neutrophils (%) (Auto) % (45.0-75.0) Lymphocytes (%) (Auto) % (20.0-45.0) Monocytes (%) (Auto) % (1.0-10.0) Eosinophils (%) (Auto) % (0.0-3.0) Basophils (%) (Auto) % (0.0-2.0) Differential Total Cells Counted 100 Neutrophils % (Manual) 58 % (45-75) Lymphocytes % (Manual) 5 % (20-45) Monocytes % (Manual) 6 % (1-10) Eosinophils % (Manual) 0 % (0-3) Basophils % (Manual) 1 % (0-2) Band Neutrophils 30 % (0-8) Platelet Estimate Adequate Platelet Morphology Normal Red Blood Cell Morphology Normal Sodium Level 139 MMOL/L (136-145) Potassium Level 4.1 MMOL/L (3.5-5.1) Chloride Level 106 MMOL/L (98-107) Carbon Dioxide Level 31 MMOL/L (21-32) Anion Gap 2 mmol/L (5-15) Blood Urea Nitrogen 13 mg/dL (7-18) Creatinine 1.3 MG/DL (0.55-1.30) Estimat Glomerular Filtration Rate > 60 mL/min (>60) Glucose Level 109 MG/DL (74-106) Hemoglobin A1c 5.5 % (4.3-6.0) Calcium Level 7.5 MG/DL (8.5-10.1) Total Bilirubin 0.6 MG/DL (0.2-1.0) Aspartate Amino Transf (AST/SGOT) 45 U/L (15-37) Alanine Aminotransferase (ALT/SGPT) 38 U/L (12-78) Alkaline Phosphatase 42 U/L (46-116) Troponin I 0.902 ng/mL (0.000-0.056) Pro-B-Type Natriuretic Peptide 1256 pg/mL (0-125) Total Protein 5.7 G/DL (6.4-8.2) Albumin 2.8 G/DL (3.4-5.0) Globulin 2.9 g/dL Albumin/Globulin Ratio 1.0 (1.0-2.7) Arterial Blood pH 7.396 (7.350-7.450) Arterial Blood Partial Pressure CO2 42.7 mmHg (35.0-45.0) Arterial Blood Partial Pressure O2 77.0 mmHg (75.0-100.0) Arterial Blood HCO3 25.6 mmol/L (22.0-26.0) Arterial Blood Oxygen Saturation 95.6 % (95-100) Arterial Blood Base Excess 0.5 (-2-2) Chepe Test Positive Triglycerides Level 72 MG/DL (30-150) Test 03/24/19 13:50 03/24/19 19:55 03/25/19 04:00 03/25/19 11:13 Lactic Acid Level 2.30 mmol/L (0.4-2.0) 1.80 mmol/L (0.4-2.0) White Blood Count 17.3 K/UL (4.8-10.8) Red Blood Count 5.15 M/UL (4.70-6.10) Hemoglobin 14.9 G/DL (14.2-18.0) Hematocrit 42.7 % (42.0-52.0) Mean Corpuscular Volume 83 FL (80-99) Mean Corpuscular Hemoglobin 28.9 PG (27.0-31.0) Mean Corpuscular Hemoglobin Concent 34.8 G/DL (32.0-36.0) Red Cell Distribution Width 12.1 % (11.6-14.8) Platelet Count 191 K/UL (150-450) Mean Platelet Volume 6.1 FL (6.5-10.1) Neutrophils (%) (Auto) % (45.0-75.0) Lymphocytes (%) (Auto) % (20.0-45.0) Monocytes (%) (Auto) % (1.0-10.0) Eosinophils (%) (Auto) % (0.0-3.0) Basophils (%) (Auto) % (0.0-2.0) Differential Total Cells Counted 100 Neutrophils % (Manual) 82 % (45-75) Lymphocytes % (Manual) 10 % (20-45) Monocytes % (Manual) 2 % (1-10) Eosinophils % (Manual) 0 % (0-3) Basophils % (Manual) 0 % (0-2) Band Neutrophils 6 % (0-8) Platelet Estimate Adequate Platelet Morphology Normal Red Blood Cell Morphology Normal Sodium Level 139 MMOL/L (136-145) Potassium Level 3.9 MMOL/L (3.5-5.1) Chloride Level 105 MMOL/L (98-107) Carbon Dioxide Level 28 MMOL/L (21-32) Anion Gap 6 mmol/L (5-15) Blood Urea Nitrogen 15 mg/dL (7-18) Creatinine 1.0 MG/DL (0.55-1.30) Estimat Glomerular Filtration Rate > 60 mL/min (>60) Glucose Level 92 MG/DL (74-106) Calcium Level 8.3 MG/DL (8.5-10.1) Magnesium Level 1.6 MG/DL (1.8-2.4) Total Bilirubin 1.1 MG/DL (0.2-1.0) Direct Bilirubin 0.1 MG/DL (0.0-0.3) Aspartate Amino Transf (AST/SGOT) 60 U/L (15-37) Alanine Aminotransferase (ALT/SGPT) 38 U/L (12-78) Alkaline Phosphatase 60 U/L (46-116) Troponin I 0.190 ng/mL (0.000-0.056) Total Protein 6.6 G/DL (6.4-8.2) Albumin 2.9 G/DL (3.4-5.0) Globulin 3.7 g/dL Albumin/Globulin Ratio 0.8 (1.0-2.7) Thyroid Stimulating Hormone (TSH) 1.538 uiU/mL (0.358-3.740) Arterial Blood pH 7.541 (7.350-7.450) Arterial Blood Partial Pressure CO2 28.9 mmHg (35.0-45.0) Arterial Blood Partial Pressure O2 181.1 mmHg (75.0-100.0) Arterial Blood HCO3 24.2 mmol/L (22.0-26.0) Arterial Blood Oxygen Saturation 98.9 % (95-100) Arterial Blood Base Excess 2.7 (-2-2) Chepe Test Positive Objective: WDWN NAD reduced breath sounds bilaterally without rhonchi or wheeze [id number] tachy without MRG NABS nontender no HSM no CCE nonfocal Micro: Microbiology Date/Time Source Procedure Growth Status 03/23/19 15:45 Blood Blood Culture - Preliminary NO GROWTH AFTER 24 HOURS Resulted 03/23/19 15:30 Blood Blood Culture - Preliminary Resulted 03/24/19 05:11 Sputum Gram Stain - Final Resulted 03/24/19 05:11 Sputum Sputum Culture Pending Resulted 03/23/19 18:30 Sputum Induced Gram Stain - Final Resulted 03/23/19 18:30 Sputum Induced Sputum Culture - Preliminary NO GROWTH Resulted 03/23/19 19:20 Rectum Received Accucheck: 93 Ishan Cao MD Mar 25, 2019 21:02
--- NOTE | 2019-03-25 23:30 | Progress Note ---
DATE: 03/25/2019 INTERNAL MEDICINE PROGRESS NOTE SUBJECTIVE: The patient remains on ventilator support. Weaning will be initiated. Settings were adjusted. OBJECTIVE: VITAL SIGNS: Blood pressure 128/75, pulse 80, and respirations 20. HEENT: Thin secretions. CARDIAC: Regular rhythm and rate. Normal S1, S2. ABDOMEN: Soft. EXTREMITIES: No edema. NEUROLOGIC: The patient is responsive. LABORATORY DATA: White count 17, hemoglobin 15. Troponin 0.19. Magnesium 1.6. ABG - 7.54, 28, 180. Urine culture pending. Chest x-ray today reveals interval improvement in interstitial and airspace disease. NG tube required advancement and was replaced accordingly. IMPRESSION: 1. Respiratory failure. 2. Aspiration pneumonia. 3. Acute myocardial ischemia. 4. Hypoxia. 5. Possible overdose. 6. Hypomagnesemia. PLAN: 1. Weaning efforts off vent. 2. Antimicrobials. 3. Avoid positive fluid balance. 4. Psych therapy. 5. DVT prophylaxis. 6. Magnesium replacement. Frederick Velasco M.D. DR: GREGORIO JOB#: [id number] CC:
[2019-03-26] VITALS (31 sets, daily range): BP systolic 117–150; BP diastolic 63–95
[2019-03-26] MEDS: Piperacillin/Tazobactam 3.375 GM in NS 110 ML IVPB SCH ×3 (02:00→17:57)
[2019-03-26] MEDS: NovoLOG Insulin Flexpen SUBQ SCH ×3 (06:00→12:00)
[2019-03-26] MEDS: NS w/KCl 20mEq 1000ml 1,000 ML IV SCH ×2 (06:35→17:57)
--- NOTE | 2019-03-26 08:56 | Diagnostic Imaging Report ---
EXAM: XR Chest, 1 View CLINICAL HISTORY: Shortness of breath TECHNIQUE: Frontal view of the chest. COMPARISON: Chest x-rays dated 03/25/19, 03/24/19, 03/23/19. FINDINGS: Lungs: Continued interval improved aeration in bilateral lungs compared to the prior exam. Persistent mildly increased interstitial markings, which may be related to pulmonary vascular congestion versus an underlying interstitial pneumonitis. Pleural space: Unremarkable. The costophrenic angles are sharp. No visible pneumothorax. Heart: Unremarkable. No cardiomegaly. Mediastinum: Unremarkable. Bones/joints: Unremarkable. Tubes, lines and devices: Stable positioning of the endotracheal and nasogastric tubes. Telemetry leads overlie the thorax. IMPRESSION: 1. Continued interval improved aeration in bilateral lungs compared to the prior exam. 2. Persistent mildly increased interstitial markings, which may be related to pulmonary vascular congestion versus an underlying interstitial pneumonitis.
--- NOTE | 2019-03-26 09:09 | Critical Care Progress Note ---
Assessment/Plan Assessment/Plan respiratory failure, acute pneumonia pulmonary infiltrates, improved possible pneumonitis hypoxemia PLAN extubate taper oxygen IV antibiotics ID evaluation monitor respiratory status post extubation advance diet monitor imaging- improving impression, plan, and exam edited and reviewed in detail care discussed with director business management - Subjective Interval Events: improved tolerating wean ABG noted o2 needs improved Condition: critical EKG Rhythm: Sinus Rhythm I&O: Intake and Output 03/25/19 03/26/19 18:59 06:59 Intake Total 1387.50 ml 1642.5 ml Output Total 585 ml 535 ml Balance 802.50 ml 1107.5 ml Intake IV Total 1387.50 ml 1642.5 ml Output Urine Total 585 ml 535 ml Critical Care - Objective ET-Tube: 7.5 ET Position: 25 Last 24 Hour Vital Signs Date Time Temp Pulse Resp B/P (MAP) Pulse Ox O2 Delivery O2 Flow Rate FiO2 03/26/19 08:51 83 30 30 30 03/26/19 08:00 Mechanical Ventilator 03/26/19 08:00 99.2 79 26 126/87 (100) 99 03/26/19 07:30 30 03/26/19 07:23 100 03/26/19 07:20 82 27 30 30 03/26/19 07:00 79 20 129/92 (104) 96 03/26/19 06:30 79 22 03/26/19 06:00 79 22 133/81 (98) 100 03/26/19 05:06 96 27 30 03/26/19 05:00 94 28 150/86 (107) 100 03/26/19 04:00 Mechanical Ventilator 03/26/19 04:00 85 03/26/19 04:00 30 03/26/19 04:00 99.7 92 26 133/85 (101) 100 03/26/19 03:30 87 18 132/81 (98) 100 03/26/19 03:06 94 26 30 03/26/19 03:00 93 23 141/85 (103) 100 03/26/19 02:00 79 21 124/85 (98) 100 03/26/19 01:00 77 20 129/80 (96) 99 03/26/19 00:57 80 21 30 03/26/19 00:00 30 03/26/19 00:00 Mechanical Ventilator 03/26/19 00:00 99.5 81 19 122/83 (96) 98 03/26/19 00:00 82 03/25/19 23:14 85 20 30 03/25/19 23:00 85 20 114/80 (91) 98 03/25/19 22:30 90 22 132/83 (99) 99 03/25/19 22:00 104 27 149/99 (116) 100 03/25/19 21:00 86 19 131/81 (98) 100 03/25/19 20:54 88 22 30 03/25/19 20:30 82 13 125/83 (97) 99 03/25/19 20:21 128/75 03/25/19 20:00 30 03/25/19 20:00 99.2 76 11 127/83 (98) 99 03/25/19 20:00 Mechanical Ventilator 03/25/19 20:00 78 03/25/19 19:00 80 20 128/75 (92) 100 03/25/19 18:39 80 20 30 03/25/19 18:00 98.6 73 21 128/81 (97) 99 03/25/19 17:01 84 24 30 03/25/19 17:00 80 24 132/83 (99) 100 03/25/19 16:00 85 25 134/87 (103) 100 03/25/19 16:00 Mechanical Ventilator 03/25/19 16:00 84 03/25/19 16:00 35 03/25/19 15:00 75 21 123/75 (91) 100 03/25/19 14:58 76 21 35 03/25/19 14:30 83 20 126/83 (97) 100 03/25/19 14:00 80 20 120/86 (97) 100 03/25/19 13:00 86 5 122/80 (94) 100 03/25/19 12:30 77 19 121/84 (96) 100 03/25/19 12:30 77 20 35 03/25/19 12:00 35 03/25/19 12:00 80 03/25/19 12:00 98.7 80 29 124/73 (90) 100 03/25/19 12:00 Mechanical Ventilator 03/25/19 11:30 78 28 132/77 (95) 100 03/25/19 11:00 87 29 124/86 (99) 100 03/25/19 10:39 83 30 40 03/25/19 10:00 99.0 89 28 128/85 (99) 100 03/25/19 09:30 81 30 131/77 (95) 100 03/25/19 09:10 84 30 40 Labs: Laboratory Tests Test 03/25/19 11:13 03/26/19 08:35 Arterial Blood pH 7.541 (7.350-7.450) 7.405 (7.350-7.450) Arterial Blood Partial Pressure CO2 28.9 mmHg (35.0-45.0) L 37.2 mmHg (35.0-45.0) Arterial Blood Partial Pressure O2 181.1 mmHg (75.0-100.0) H 94.2 mmHg (75.0-100.0) Arterial Blood HCO3 24.2 mmol/L (22.0-26.0) 22.8 mmol/L (22.0-26.0) Arterial Blood Oxygen Saturation 98.9 % (95-100) 96.8 % (95-100) Arterial Blood Base Excess 2.7 (-2-2) H -1.5 (-2-2) Chepe Test Positive Positive Objective: WDWN NAD improved breath sounds bilaterally without rhonchi or wheeze [id number] without MRG NABS nontender no HSM no CCE nonfocal Micro: Microbiology Date/Time Source Procedure Growth Status 03/23/19 15:45 Blood Blood Culture - Preliminary NO GROWTH AFTER 48 HOURS Resulted 03/23/19 15:30 Blood Blood Culture - Final Bacillus Sp Not B. Anthracis Complete 03/24/19 05:11 Sputum Gram Stain - Final Complete 03/24/19 05:11 Sputum Culture - Final Hattie Albicans Usual Respiratory Sujata Complete 03/23/19 19:20 Nasal Nares MRSA Culture - Final NO METHICILLIN RESISTANT STAPH AUREUS... Complete 03/23/19 18:30 Sputum Induced Gram Stain - Final Complete 03/23/19 18:30 Sputum Induced Sputum Culture - Final NO GROWTH AFTER 48 HOURS Complete 03/23/19 19:29 Rectum VRE Culture - Final NO VANCOMYCIN RESISTANT ENTEROCOCCUS ... Complete 03/23/19 19:20 Rectum - Final NO CARBAPENEM-RESISTANT ENTEROBACTERI... Complete Accucheck: 101 Ishan Cao MD Mar 26, 2019 09:09
[2019-03-26] MEDS: Pantoprazole Inj IVP SCH (09:47)
[2019-03-26] MEDS ORDERED: NS 275ml ONE ×2 (10:02→10:35)
[2019-03-26] MEDS ORDERED: Sterile Water Irrig 1000ml IRRIG ONE (10:35)
[2019-03-26] MEDS ORDERED: Tubing IV Secondary IV ONE (10:35)
[2019-03-26] MEDS ORDERED: D5W 275ml ONE (10:35)
[2019-03-26 12:37] LABS: BASOPHILS % (AUTO) 0.5 % (0.0-2.0); EOSINOPHILS % (AUTO) 0.4 % (0.0-3.0); HEMATOCRIT 40.9 % (42.0-52.0); HEMOGLOBIN 13.8 G/DL (14.2-18.0); LYMPHOCYTES % (AUTO) 11.1 % (20.0-45.0); MEAN CORPUSCULAR VOLUME 84 FL (80-99); MONOCYTES % (AUTO) 4.2 % (1.0-10.0); NEUTROPHILS % (AUTO) 83.9 % (45.0-75.0); PLATELET COUNT 209 K/UL (150-450); RED BLOOD COUNT 4.84 M/UL (4.70-6.10); RED CELL DISTRIBUTION WIDTH 12.5 % (11.6-14.8); WHITE BLOOD COUNT 11.1 K/UL (4.8-10.8)
[2019-03-26 12:59] LABS: ANION GAP 11 mmol/L (5-15); BLOOD UREA NITROGEN 20 mg/dL (7-18); CALCIUM 8.7 MG/DL (8.5-10.1); CARBON DIOXIDE 24 MMOL/L (21-32); CHLORIDE 109 MMOL/L (98-107); CREATININE 0.9 MG/DL (0.55-1.30); POTASSIUM 3.8 MMOL/L (3.5-5.1); SODIUM 144 MMOL/L (136-145)
[2019-03-26 13:10] LABS: ALANINE AMINOTRANSFERASE 33 U/L (12-78); ALBUMIN 2.8 G/DL (3.4-5.0); ALBUMIN/GLOBULIN RATIO 0.7 (1.0-2.7); ALKALINE PHOSPHATASE 56 U/L (46-116); ASPARTATE AMINO TRANSFERASE 30 U/L (15-37); BILIRUBIN,TOTAL 1.1 MG/DL (0.2-1.0)
[2019-03-26 13:11] LABS: BILIRUBIN,DIRECT 0.2 MG/DL (0.0-0.3)
[2019-03-26] MEDS ORDERED: Guaifenesin/DM 10ml syrup ORAL PRN (13:15)
--- NOTE | 2019-03-26 18:00 | Consultation ---
DATE OF CONSULTATION: 03/26/2019 INFECTIOUS DISEASES CONSULTATION CONSULTING PHYSICIAN: Shira Jackson M.D. REFERRING PHYSICIAN: Frederick Velasco M.D. REASON FOR CONSULTATION: Gram-negative sepsis. HISTORY OF PRESENTING ILLNESS: This is a 28-year-old gentleman, who was found with pinpoint pupils and given Narcan in the field. He started having vomiting. He states he has been taking opioids. He was seen in the emergency room and intubated. Now, he is extubated and Infectious Diseases consultation has been obtained for gram-negative sepsis. PAST MEDICAL HISTORY: Nothing significant. SOCIAL HISTORY: He smokes marijuana. He drinks alcohol. He also uses opiates. FAMILY HISTORY: Noncontributory. REVIEW OF SYSTEMS: RESPIRATORY: He does have fever and chills. No cough. No shortness of breath. No chest pain. CARDIAC: No chest pain. No palpitation. No dizziness. No syncope. GASTROINTESTINAL: He had nausea and vomiting. No abdominal pain or diarrhea. MEDICATIONS: As an inpatient, he is on pantoprazole, lorazepam, midazolam, insulin, nitroglycerin, potassium, Tylenol, and Zosyn. ALLERGIES: No known drug allergies. PHYSICAL EXAMINATION: VITAL SIGNS: Temperature of 99.2, T-max of 99.7, pulse of 83, respiratory rate 30, blood pressure 126/87, and O2 saturation of 99%. HEENT: Pupils equally reactive to light and accommodation. Mouth appears clean without thrush. NECK: Supple. No adenopathy. No JVD. CARDIOVASCULAR: Regular rate and rhythm. No murmurs. LUNGS: Clear to auscultation bilaterally. No crackles. No wheezes. ABDOMEN: Soft and nontender. No organomegaly. EXTREMITIES: No cyanosis. No clubbing. No edema. LABORATORY AND DIAGNOSTIC DATA: White count of 17.3, hemoglobin 14.9, hematocrit 42.7, MCV 83, and platelet count of 191,000; neutrophils of 82%. Sodium 139, potassium 3.9, chloride 105, bicarb 28, BUN 15, creatinine 1, glucose 92, and calcium 8.3. Total bilirubin 1.1, AST 60, ALT 38, alkaline phosphatase 60, total protein 6.6, albumin 2.9, and lipase of 115. UA showing 0-2 white cells. Sputum culture showing Hattie albicans and usual becki. Rectal swab was negative for VRE. Nasal swab was negative for MRSA. From 03/23/2019, sputum cultures are negative. From 03/23/2019, blood cultures growing Bacillus species, not anthracis. Chest x-ray showing persistent mildly increased interstitial makings, which may be pulmonary congestion versus interstitial pneumonitis. ASSESSMENT: This is a 28-year-old gentleman with no past medical history, who comes in with pinpoint pupils, was given Narcan and has improved, and was found to have: 1. Bacillus bacteremia, it is most likely a contaminant in the blood. 2. He probably also has an aspiration pneumonia. 3. Leukocytosis. PLAN: 1. Continue Zosyn. 2. We will follow up cultures. I would like to thank, Dr. Velasco, for this consultation. Shira Jackson M.D. DR: JEANA JOB#: [id number] CC: Frederick Velasco M.D.
[2019-03-26] MEDS: Nitroglycerin Patch 0.1mg/hr TDERMAL SCH (20:58)
--- NOTE | 2019-03-26 21:45 | Progress Note ---
DATE: 03/26/2019 INTERNAL MEDICINE PROGRESS NOTE SUBJECTIVE: The patient is extubated. He is awake, alert, and interactive. He admits to using heroin and fentanyl. He states that he has a distant history of drug use. He has been clean for 2 years and restarted about a week ago. He now states that he has no desire to use drugs over again. He is aware that he almost because of his drug use. OBJECTIVE: VITAL SIGNS: Blood pressure 125/71, heart rate 85, respiratory rate 25, and oxygen saturation adequate on room air. LUNGS: Few rhonchi. CARDIAC: Regular rhythm and rate. Normal S1 and S2. ABDOMEN: Soft. EXTREMITIES: No edema. IMPRESSION: 1. Respiratory failure. 2. Fentanyl and heroin abuse. 3. Aspiration pneumonia. 4. Gram-negative bacteremia, likely a contaminant. 5. Acute myocardial ischemia, possible component of pulmonary venous congestion. PLAN: 1. Continue antimicrobials. 2. Respiratory hygiene. 3. Bronchodilators. 4. Psychiatric consultation. 5. Transfer from ICU level of care. Frederick Velasco M.D. DR: Moise JOB#: [id number] CC:
[2019-03-27] VITALS (13 sets, daily range): BP systolic 109–144; BP diastolic 65–95
[2019-03-27] MEDS: Piperacillin/Tazobactam 3.375 GM in NS 110 ML IVPB SCH ×3 (02:56→17:16)
[2019-03-27] MEDS: NS w/KCl 20mEq 1000ml 1,000 ML IV SCH ×3 (02:56→14:31)
[2019-03-27 04:43] LABS: BASOPHILS % (AUTO) 0.9 % (0.0-2.0); EOSINOPHILS % (AUTO) 2.2 % (0.0-3.0); HEMATOCRIT 39.3 % (42.0-52.0); HEMOGLOBIN 13.5 G/DL (14.2-18.0); LYMPHOCYTES % (AUTO) 22.1 % (20.0-45.0); MEAN CORPUSCULAR VOLUME 84 FL (80-99); MONOCYTES % (AUTO) 6.1 % (1.0-10.0); NEUTROPHILS % (AUTO) 68.7 % (45.0-75.0); PLATELET COUNT 210 K/UL (150-450); WHITE BLOOD COUNT 7.7 K/UL (4.8-10.8)
[2019-03-27 05:09] LABS: ALANINE AMINOTRANSFERASE 32 U/L (12-78); ALBUMIN 2.6 G/DL (3.4-5.0); ALBUMIN/GLOBULIN RATIO 0.7 (1.0-2.7); ALKALINE PHOSPHATASE 51 U/L (46-116); ANION GAP 10 mmol/L (5-15); ASPARTATE AMINO TRANSFERASE 26 U/L (15-37); BILIRUBIN,TOTAL 0.8 MG/DL (0.2-1.0); BLOOD UREA NITROGEN 12 mg/dL (7-18); CALCIUM 8.1 MG/DL (8.5-10.1); CARBON DIOXIDE 24 MMOL/L (21-32); CHLORIDE 109 MMOL/L (98-107); CREATININE 0.8 MG/DL (0.55-1.30); POTASSIUM 3.4 MMOL/L (3.5-5.1); SODIUM 143 MMOL/L (136-145)
[2019-03-27] MEDS ORDERED: Guaifenesin/DM 10ml syrup ORAL PRN (06:45)
[2019-03-27] MEDS ORDERED: LORazepam Inj 2mg/ml 1ml IV PRN (06:45)
[2019-03-27] MEDS ORDERED: Midazolam 2mg/2ml Inj IVP PRN (08:00)
[2019-03-27] MEDS ORDERED: Pantoprazole Inj IVP SCH (09:00)
--- NOTE | 2019-03-27 10:10 | Critical Care Progress Note ---
Assessment/Plan Assessment/Plan respiratory failure, acute pneumonia pulmonary infiltrates, improved possible pneumonitis hypoxemia PLAN stable off vent taper oxygen IV antibiotics as is monitor respiratory status post extubation advance diet monitor imaging- for change impression, plan, and exam edited and reviewed in detail care discussed with wired music operator - Subjective Interval Events: improved I&O: Intake and Output 03/26/19 03/27/19 18:59 06:59 Intake Total 1470.0 ml 1841.3 ml Output Total 665 ml 515 ml Balance 805.0 ml 1326.3 ml Intake Oral 360 ml 450 ml IV Total 1110.0 ml 1391.3 ml Output Urine Total 665 ml 515 ml # Bowel Movements 1 3 Critical Care - Objective ET-Tube: 7.5 ET Position: 25 Last 24 Hour Vital Signs Date Time Temp Pulse Resp B/P (MAP) Pulse Ox O2 Delivery O2 Flow Rate FiO2 03/27/19 09:00 Nasal Cannula 2.0 03/27/19 08:00 97.7 75 18 121/66 (84) 97 03/27/19 06:00 98.5 66 25 125/77 (93) 99 03/27/19 05:30 66 33 119/77 (91) 99 03/27/19 05:00 79 30 123/76 (92) 100 03/27/19 04:00 Nasal Cannula 2.0 03/27/19 04:00 64 03/27/19 04:00 98.0 77 30 118/65 (82) 98 03/27/19 03:00 71 29 109/73 (85) 100 03/27/19 02:30 66 34 116/71 (86) 99 03/27/19 02:00 66 36 116/76 (89) 100 03/27/19 01:30 81 35 116/72 (87) 99 03/27/19 01:00 72 31 118/73 (88) 100 03/27/19 00:00 Nasal Cannula 2.0 03/27/19 00:00 77 03/27/19 00:00 98.2 78 16 130/80 (97) 89 03/26/19 23:00 75 12 138/88 (105) 94 03/26/19 22:30 75 13 129/95 (106) 97 03/26/19 22:00 83 18 123/76 (92) 100 03/26/19 21:00 70 25 122/63 (82) 99 03/26/19 20:58 125/78 03/26/19 20:30 75 38 125/78 (94) 99 03/26/19 20:00 98.0 71 30 119/78 (92) 98 03/26/19 20:00 2.0 03/26/19 20:00 85 03/26/19 20:00 Nasal Cannula 2.0 03/26/19 19:00 87 21 127/83 (98) 99 03/26/19 18:30 84 18 124/84 (97) 100 03/26/19 18:00 84 25 126/83 (97) 100 03/26/19 17:30 85 25 125/71 (89) 100 03/26/19 17:00 81 27 122/81 (95) 100 03/26/19 16:30 84 20 125/79 (94) 100 03/26/19 16:00 89 03/26/19 16:00 2.0 03/26/19 16:00 98.4 76 33 119/79 (92) 99 03/26/19 16:00 Nasal Cannula 2.0 03/26/19 15:30 82 18 122/82 (95) 98 03/26/19 15:00 78 24 125/85 (98) 99 03/26/19 14:30 69 27 117/81 (93) 100 03/26/19 14:00 78 17 121/76 (91) 100 03/26/19 13:00 99.3 80 31 126/76 (93) 100 03/26/19 12:00 3.0 03/26/19 12:00 80 27 131/83 (99) 100 03/26/19 12:00 71 03/26/19 12:00 Nasal Cannula 3.0 03/26/19 11:00 65 26 126/84 (98) 100 Labs: Laboratory Tests Test 03/26/19 12:05 03/27/19 04:10 White Blood Count 11.1 K/UL (4.8-10.8) H 7.7 K/UL (4.8-10.8) Red Blood Count 4.84 M/UL (4.70-6.10) 4.70 M/UL (4.70-6.10) Hemoglobin 13.8 G/DL (14.2-18.0) L 13.5 G/DL (14.2-18.0) L Hematocrit 40.9 % (42.0-52.0) L 39.3 % (42.0-52.0) L Mean Corpuscular Volume 84 FL (80-99) 84 FL (80-99) Mean Corpuscular Hemoglobin 28.5 PG (27.0-31.0) 28.7 PG (27.0-31.0) Mean Corpuscular Hemoglobin Concent 33.8 G/DL (32.0-36.0) 34.3 G/DL (32.0-36.0) Red Cell Distribution Width 12.5 % (11.6-14.8) 12.0 % (11.6-14.8) Platelet Count 209 K/UL (150-450) 210 K/UL (150-450) Mean Platelet Volume 6.7 FL (6.5-10.1) 6.7 FL (6.5-10.1) Neutrophils (%) (Auto) 83.9 % (45.0-75.0) H 68.7 % (45.0-75.0) Lymphocytes (%) (Auto) 11.1 % (20.0-45.0) L 22.1 % (20.0-45.0) Monocytes (%) (Auto) 4.2 % (1.0-10.0) 6.1 % (1.0-10.0) Eosinophils (%) (Auto) 0.4 % (0.0-3.0) 2.2 % (0.0-3.0) Basophils (%) (Auto) 0.5 % (0.0-2.0) 0.9 % (0.0-2.0) Sodium Level 144 MMOL/L (136-145) 143 MMOL/L (136-145) Potassium Level 3.8 MMOL/L (3.5-5.1) 3.4 MMOL/L (3.5-5.1) L Chloride Level 109 MMOL/L (98-107) H 109 MMOL/L (98-107) H Carbon Dioxide Level 24 MMOL/L (21-32) 24 MMOL/L (21-32) Anion Gap 11 mmol/L (5-15) 10 mmol/L (5-15) Blood Urea Nitrogen 20 mg/dL (7-18) H 12 mg/dL (7-18) Creatinine 0.9 MG/DL (0.55-1.30) 0.8 MG/DL (0.55-1.30) Estimat Glomerular Filtration Rate > 60 mL/min (>60) > 60 mL/min (>60) Glucose Level 95 MG/DL (74-106) 91 MG/DL (74-106) Calcium Level 8.7 MG/DL (8.5-10.1) 8.1 MG/DL (8.5-10.1) L Phosphorus Level 3.0 MG/DL (2.5-4.9) Magnesium Level 2.2 MG/DL (1.8-2.4) 1.8 MG/DL (1.8-2.4) Total Bilirubin 1.1 MG/DL (0.2-1.0) H 0.8 MG/DL (0.2-1.0) Direct Bilirubin 0.2 MG/DL (0.0-0.3) Aspartate Amino Transf (AST/SGOT) 30 U/L (15-37) 26 U/L (15-37) Alanine Aminotransferase (ALT/SGPT) 33 U/L (12-78) 32 U/L (12-78) Alkaline Phosphatase 56 U/L (46-116) 51 U/L (46-116) Troponin I 0.067 ng/mL (0.000-0.056) 0.061 ng/mL (0.000-0.056) Total Protein 6.7 G/DL (6.4-8.2) 6.3 G/DL (6.4-8.2) L Albumin 2.8 G/DL (3.4-5.0) L 2.6 G/DL (3.4-5.0) L Globulin 3.9 g/dL 3.7 g/dL Albumin/Globulin Ratio 0.7 (1.0-2.7) L 0.7 (1.0-2.7) L Pro-B-Type Natriuretic Peptide 107 pg/mL (0-125) Objective: WDWN NAD improved breath sounds bilaterally without rhonchi or wheeze [id number] without MRG NABS nontender no HSM no CCE nonfocal Accucheck: 84 Ishaaya,Ishan M MD Mar 27, 2019 10:10
--- NOTE | 2019-03-27 13:14 | Infectious Diseases Prog Note ---
Assessment/Plan Assessment/Plan A; Sepsis Aspiration pneumonia Hypercapnic respiratory failure Opioid overdose Positive blood culture: contamination Localized rash P; Continue Zosyn Subjective ROS Limited/Unobtainable: No Constitutional: Reports: no symptoms Respiratory: Reports: productive cough Cardiovascular: Reports: no symptoms Gastrointestinal/Abdominal: Reports: no symptoms Skin: Reports: rash, other - right posterior arm Allergies: Coded Allergies: No Known Allergies (Unverified , 03/23/19) Objective Vital Signs Last 24 Hour Vital Signs Date Time Temp Pulse Resp B/P (MAP) Pulse Ox O2 Delivery O2 Flow Rate FiO2 03/27/19 12:00 97.9 75 16 137/91 (106) 99 03/27/19 09:00 Nasal Cannula 2.0 03/27/19 08:00 97.7 75 18 121/66 (84) 97 03/27/19 06:00 98.5 66 25 125/77 (93) 99 03/27/19 05:30 66 33 119/77 (91) 99 03/27/19 05:00 79 30 123/76 (92) 100 03/27/19 04:00 Nasal Cannula 2.0 03/27/19 04:00 64 03/27/19 04:00 98.0 77 30 118/65 (82) 98 03/27/19 03:00 71 29 109/73 (85) 100 03/27/19 02:30 66 34 116/71 (86) 99 03/27/19 02:00 66 36 116/76 (89) 100 03/27/19 01:30 81 35 116/72 (87) 99 03/27/19 01:00 72 31 118/73 (88) 100 03/27/19 00:00 Nasal Cannula 2.0 03/27/19 00:00 77 03/27/19 00:00 98.2 78 16 130/80 (97) 89 03/26/19 23:00 75 12 138/88 (105) 94 03/26/19 22:30 75 13 129/95 (106) 97 03/26/19 22:00 83 18 123/76 (92) 100 03/26/19 21:00 70 25 122/63 (82) 99 03/26/19 20:58 125/78 03/26/19 20:30 75 38 125/78 (94) 99 03/26/19 20:00 98.0 71 30 119/78 (92) 98 03/26/19 20:00 2.0 03/26/19 20:00 85 03/26/19 20:00 Nasal Cannula 2.0 03/26/19 19:00 87 21 127/83 (98) 99 03/26/19 18:30 84 18 124/84 (97) 100 03/26/19 18:00 84 25 126/83 (97) 100 03/26/19 17:30 85 25 125/71 (89) 100 03/26/19 17:00 81 27 122/81 (95) 100 03/26/19 16:30 84 20 125/79 (94) 100 03/26/19 16:00 89 03/26/19 16:00 2.0 03/26/19 16:00 98.4 76 33 119/79 (92) 99 03/26/19 16:00 Nasal Cannula 2.0 03/26/19 15:30 82 18 122/82 (95) 98 03/26/19 15:00 78 24 125/85 (98) 99 03/26/19 14:30 69 27 117/81 (93) 100 03/26/19 14:00 78 17 121/76 (91) 100 Height (Feet): 5 Height (Inches): 11.00 Weight (Pounds): 200 General Appearance: no acute distress HEENT: mucous membranes moist Respiratory/Chest: lungs clear Cardiovascular: normal rate Abdomen: soft, non tender Extremities: no edema Skin: rash, other - right posterior arm Laboratory Tests Test 03/27/19 04:10 White Blood Count 7.7 K/UL (4.8-10.8) Red Blood Count 4.70 M/UL (4.70-6.10) Hemoglobin 13.5 G/DL (14.2-18.0) L Hematocrit 39.3 % (42.0-52.0) L Mean Corpuscular Volume 84 FL (80-99) Mean Corpuscular Hemoglobin 28.7 PG (27.0-31.0) Mean Corpuscular Hemoglobin Concent 34.3 G/DL (32.0-36.0) Red Cell Distribution Width 12.0 % (11.6-14.8) Platelet Count 210 K/UL (150-450) Mean Platelet Volume 6.7 FL (6.5-10.1) Neutrophils (%) (Auto) 68.7 % (45.0-75.0) Lymphocytes (%) (Auto) 22.1 % (20.0-45.0) Monocytes (%) (Auto) 6.1 % (1.0-10.0) Eosinophils (%) (Auto) 2.2 % (0.0-3.0) Basophils (%) (Auto) 0.9 % (0.0-2.0) Sodium Level 143 MMOL/L (136-145) Potassium Level 3.4 MMOL/L (3.5-5.1) L Chloride Level 109 MMOL/L (98-107) H Carbon Dioxide Level 24 MMOL/L (21-32) Anion Gap 10 mmol/L (5-15) Blood Urea Nitrogen 12 mg/dL (7-18) Creatinine 0.8 MG/DL (0.55-1.30) Estimat Glomerular Filtration Rate > 60 mL/min (>60) Glucose Level 91 MG/DL (74-106) Calcium Level 8.1 MG/DL (8.5-10.1) L Magnesium Level 1.8 MG/DL (1.8-2.4) Total Bilirubin 0.8 MG/DL (0.2-1.0) Aspartate Amino Transf (AST/SGOT) 26 U/L (15-37) Alanine Aminotransferase (ALT/SGPT) 32 U/L (12-78) Alkaline Phosphatase 51 U/L (46-116) Troponin I 0.061 ng/mL (0.000-0.056) Pro-B-Type Natriuretic Peptide 107 pg/mL (0-125) Total Protein 6.3 G/DL (6.4-8.2) L Albumin 2.6 G/DL (3.4-5.0) L Globulin 3.7 g/dL Albumin/Globulin Ratio 0.7 (1.0-2.7) L Current Medications Medications (Trade) Dose Ordered Sig/Cy Route PRN Reason Start Time Stop Time Status Last Admin Dose Admin Acetaminophen (Tylenol) 650 mg Q4H PRN ORAL Mild Pain/Temp > 100.5 03/27/19 06:45 04/26/19 06:44 Dextrose (Dextrose 50%) 25 ml Q30M PRN IV Hypoglycemia 03/27/19 06:45 12/20/19 18:14 Dextrose (Dextrose 50%) 50 ml Q30M PRN IV Hypoglycemia 03/27/19 06:45 04/22/19 18:14 Guaifenesin/ Dextromethorphan (Robitussin DM Syrup) 15 ml Q4H PRN ORAL For Cough 03/27/19 06:45 04/26/19 06:44 Lorazepam (Ativan 2mg/ml 1ml) 2 mg Q4H PRN IV For Anxiety 03/27/19 06:45 04/03/19 06:44 Nitroglycerin (Ntg) 1 patch Q24H TDERMAL 03/27/19 20:00 04/22/19 19:59 Pantoprazole (Protonix) 40 mg DAILY IVP 03/27/19 09:00 04/24/19 08:59 03/27/19 08:38 Piperacillin Sod/ Tazobactam Sod 3.375 gm/Sodium Chloride 110 ml @ 27.5 mls/hr Q8H IVPB 03/27/19 10:00 03/30/19 17:59 03/27/19 11:06 Potassium Chloride/Sodium Chloride 1,000 ml @ 100 mls/hr Q10H IV 03/27/19 06:44 04/26/19 06:43 03/27/19 06:56 Luis Daniel Castrejon MD Mar 27, 2019 13:14
[2019-03-27] MEDS ORDERED: Hydrocortisone 1% Cr 15gm TOPIC PRN (14:15)
[2019-03-27] MEDS ORDERED: Tubing IV Secondary IV ONE (17:20)
[2019-03-27] MEDS ORDERED: AUGMENTIN 875-1 EAC1 ORAL (17:46)
[2019-03-27] MEDS ORDERED: Nitroglycerin Patch 0.1mg/hr TDERMAL SCH (20:00)
--- NOTE | 2019-03-27 21:45 | Progress Note ---
DATE: 03/27/2019 CARDIOLOGY PROGRESS NOTE SUBJECTIVE: The patient with less congestion and cough. No shortness of breath. No hypoxia. OBJECTIVE: VITAL SIGNS: Stable. He was counseled again regarding the use of fentanyl and heroin and risk of sudden . LUNGS: With few rhonchi. CARDIAC: Regular. ABDOMEN: Soft. No edema. IMPRESSION: Improved. PLAN: 1. Stable for outpatient management. 2. Oral antimicrobials have been given. Frederick Velasco M.D. DR: DELLA JOB#: [id number] CC:
[2019-03-27] MEDS ORDERED: NS 275ml ONE (21:49)
--- NOTE | 2019-03-29 08:14 | Discharge Summary ---
Discharge Summary Discharge Summary _ DATE OF ADMISSION: 03/23/2019 DATE OF DISCHARGE: 03/27/1988 DISCHARGED BY: REASON FOR ADMISSION: 28 years old male without significant past medical history was found with pinpoint pupils. Patient was given Narcan in the field. Patient became agitated and started vomiting. Upon evaluation in the emergency department Chest x-ray showed bilateral extensive diffuse parenchymal disease: infiltrates versus edema. Patient required emergency intubation . Postintubation chest x-ray confirmed satisfactory endotracheal tube position as well as the NG tube position. Persistent extensive bilateral interstitial airspace infiltrates versus edema noted. Laboratory work-up revealed leukocytosis WBC 18, stable hemoglobin and hematocrit. ABG on ventilator initially revealed severe acute respiratory acidosis with pH 7.0 , pCO2 124 , which was done fter intubation on FiO2 100% , AC rate 24 and PEEP 20. Lactic acid 8.9. Potassium 3.2. BUN 13, creatinine 1.5. Glucose 345. AST 66. CK 543. Lipase 115. Elevated troponin 0.099. Urinalysis revealed no evidence of urinary tract infection. Urine toxicology screen was positive for marijuana. Patient was admitted to ICU for further management. CONSULTANTS: pulmonary Dr. Cao ID specialist Dr. Jackson psychiatrist [facility] COURSE: Patient admitted to ICU. Pediatric Intensive Physician closely followed. 9 Ventilator support provided. Pulmonary toilet with bronchodilator therapy provided. Patient started on empiric antibiotic as per ID specialist recommendation. Patient was followed -up with ABG and chest x-ray. Ventilator settings were adjusted based on ABG results. Serial troponin were trending down, the last 0.061. EKG revealed no acute ischemic changes. Pattern of troponin elevation was not suggestive of acute myocardial infarction. Acute myocardial ischemia was likely due to demand ischemia probably due to pulmonary venous congestion and acute respiratory failure. On 03/25 chest x-ray started to show some improvement. Strict aspiration precaution maintained. Nutritional support provided via NG tube. Blood culture revealed Bacillus 1/4 bottles. Positive blood culture likely was contaminated as per ID specialist. Sputum culture was negative. Repeated sputum culture showed Hattie. Patient was on empiric Zosyn for aspiration pneumonia DVT prophylaxis provided. Potassium and magnesium replaced. Renal parameters were closely monitored. Nephrotoxic's avoided. Patient started on the weaning protocol and was able to be weaned on 03/26. Subsequent chest x-ray showed improvement in aeration. Leukocytosis resolved. Psychiatrist followed . Patient had heroin dependency . Anxiolytic provided as needed. Per psychiatrist patient was not at imminent danger to self or others. Patient was provided with reality orientation and supportive therapy. Patient clinically stabilized and was ready for discharge home. Patient was counseled on abstinence from illicit drug. Antibiotics provided on discharge to complete the course. FINAL DIAGNOSES: Sepsis Acute hypoxic hypercapnic respiratory failure requiring intubation-resolved Aspiration pneumonia Possible noncardiogenic pulmonary edema Possible pneumonitis Possible ARDS Acute myocardial ischemia possibly due to pulmonary venous congestion Status post heroin overdose drug overdose Heroin and fentanyl abuse Lactic acidosis DISCHARGE MEDICATIONS: See Medication Reconciliation list. DISCHARGE INSTRUCTIONS: Patient was discharged home. Follow-up with a primary care provider in 1 to 2 weeks. Patient was counseled on abstinence from illicit drug I have been assigned to dictate discharge summary for this account. I was not involved in the patient's management. July Martinez NP Mar 29, 2019 08:14
== END 2019-03-27 21:50 | disposition home or self-care (01) | DRG 816 ==
LOC: EDBD 14:00 → EMR 14:14 → ICU 15:10 → EDBEDREQ 16:21 → 4E 03-27 06:20
DX: T40.1X1A Poisoning by heroin, accidental (unintentional), initial encounter (principal); J69.0 Pneumonitis due to inhalation of food and vomit; E87.2 Acidosis; A41.9 Sepsis, unspecified organism; J80 Acute respiratory distress syndrome; I24.9 Acute ischemic heart disease, unspecified; J96.01 Acute respiratory failure with hypoxia; J81.0 Acute pulmonary edema; F12.90 Cannabis use, unspecified, uncomplicated; F11.20 Opioid dependence, uncomplicated; Y92.9 Unspecified place or not applicable; E83.42 Hypomagnesemia
CPT/HCPCS: 36415; 36600; 71045; 74018; 80053; 80307; 81003; 82248; 82550; 82803; 82962; 83036; 83605; 83690; 83735; 83880; 84100; 84443; 84478; 84484; 85007; 85025; 85610; 85730; 87040; 87070; 87081; 87205; 93005; 94002; 94003; 94664; 96361; 96365; 96366; 96367; 96375; 99291; 99292; J1815; J2250; J2405; J8499

== ENCOUNTER 2019-07-11 11:31 | Emergency (ER) | payer OTHER ==
[~2019-07-11] VITALS: Ht 172.7 cm; Wt 97.5 kg
[~2019-07-11 11:31] MED LIST: AUGMENTIN 875-1 EAC1 ORAL
[2019-07-11 11:47] VITALS: BP 136/93
--- NOTE | 2019-07-11 11:47 | NUR ---
ED Nurse Note: cough and cold and runny nose x 3 days . no fever or chills. pt denies travel.
[2019-07-11] MEDS ORDERED: AFRIN NASAL SPR30 ML NASAL (11:53)
[2019-07-11] MEDS ORDERED: ZYRTEC10 MG ORAL (11:53)
[2019-07-11 11:57] VITALS: BP 132/84
--- NOTE | 2019-07-11 11:57 | NUR ---
ER DISCHARGE NOTE: Patient is cleared to be discharged per ERMD, pt is aox4, on room air, with stable vital signs. pt was given dc and prescription instructions, pt was able to verbalize understanding, pt id band removed. pt is able to ambulate with steady gait. pt took all belongings.
--- NOTE | 2019-07-11 12:22 | Emergency Room Report ---
History of Present Illness General Chief Complaint: Upper Respiratory Illness Source: Patient Present Illness HPI 29-year-old male presented with URI symptoms. He has had nasal congestion for the past few days. He previously had a cough that has since resolved. Denies fevers. Denies any pain at this time. No nausea vomiting. No recent travel. Patient has sick contacts at work but no known history of exposure to coronavirus. Allergies: Coded Allergies: No Known Allergies (Unverified , 03/23/19) Patient History Past Medical History: see triage record Reviewed Nursing Documentation: PMH: Agreed; PSxH: Agreed Nursing Documentation-PMH Past Medical History: No Stated History Review of Systems All Other Systems: negative except mentioned in HPI Physical Exam Vital Signs Date Time Temp Pulse Resp B/P (MAP) Pulse Ox O2 Delivery O2 Flow Rate FiO2 07/11/19 11:40 97.9 86 18 136/93 (107) 98 Room Air Sp02 EP Interpretation: reviewed, normal General Appearance: well appearing, no apparent distress Head: normocephalic, atraumatic Eyes: bilateral eye PERRL, bilateral eye EOMI ENT: hearing grossly normal, normal pharynx, moist mucus membranes, nasal congestion Neck: full range of motion, supple Respiratory: lungs clear, normal breath sounds, no rhonchi, no respiratory distress, no retraction, no wheezing Cardiovascular #1: normal peripheral pulses, regular rate, rhythm, no murmur Gastrointestinal: non tender, soft, non-distended, no guarding Neurologic: alert, oriented x3, no focal defects Skin: normal color, warm/dry Medical Decision Making Diagnostic Impression: Primary Impression: URI (upper respiratory infection) ER Course 29-year-old male presenting with URI symptoms. He was in no distress. Nontoxic -appearing. No cough. No travel history or contact with known coronavirus patients. Patient stable for discharge. Will provide symptomatic treatment. Low suspicion for pneumonia. Last Vital Signs Date Time Temp Pulse Resp B/P (MAP) Pulse Ox O2 Delivery O2 Flow Rate FiO2 07/11/19 11:57 98.2 89 17 132/84 100 Room Air Status: unchanged Disposition: HOME, SELF-CARE Condition: Stable Scripts Cetirizine Hcl* (ZYRTEC*) 10 Mg Tablet 10 MG ORAL DAILY, #30 TAB 0 Refills Prov: Myke Mariee M.D. 07/11/19 Oxymetazoline HCl (Afrin) 15 Ml [place] 2 SPRAYS NASAL TWICE A DAY for Nasal Congestion. Max 3 days, #30 SPRAY Prov: Myke Mariee M.D. 07/11/19 Departure Forms: Return to Work Return to Work in (Days): 1 Return to Work Date: Jul 12, 2019 Patient Instructions: Upper Respiratory Infection, Adult Additional Instructions: Patient is instructed to follow-up with her primary care doctor, primary care clinic or [facility] in 1 to 2 days. Patient instructed to return for any worsening symptoms or concerns. Please note that the documentation in this note was used with Anywhere [employer] Go[employer] technology. Pleae be advised that this may lead to erroneous text due to misinterpretation by the dictation software Myke Mariee M.D. Jul 11, 2019 12:22
== END 2019-07-11 11:57 | disposition home or self-care (01) ==
LOC: EMR 11:52
DX: J06.9 Acute upper respiratory infection, unspecified (principal)
CPT/HCPCS: 99282